=== PATIENT | male | born 1980 | race Caucasian/White ===

== ENCOUNTER 2016-12-26 18:09 | Inpatient (IN) | payer MEDICAID, OTHER, SELFPAY ==
[~2016-12-26] VITALS: Ht 177.8 cm; Wt 98.0 kg
[2016-12-26] VITALS (10 sets, daily range): BP systolic 88–96; BP diastolic 51–57
[2016-12-26] MEDS ORDERED: LORazepam 2 MG/ML VIAL (J2060) IV STA (18:22)
[2016-12-26] MEDS ORDERED: SUBO8MIS SL (18:29)
[2016-12-26] MEDS ORDERED: ADVI200T PO (18:29)
[2016-12-26] MEDS ORDERED: IMOD2CAP PO (18:29)
[2016-12-26] MEDS ORDERED: NS 1,000 ML IV ONE ×2 (18:30→20:30)
[2016-12-26] MEDS ORDERED: ONDANSETRON 4MG/2ML VIAL (J2405) IV ONE (18:30)
[2016-12-26] MEDS ORDERED: METAL LOCK LOOP XX ONE (18:53)
[2016-12-26] MEDS ORDERED: NALOXONE INJ 2 MG/2 ML SYRINGE (J2310) IV STA (19:05)
--- NOTE | 2016-12-26 19:10 | REP ---
PORTABLE CHEST: AP portable view of the chest is performed. There are scattered alveolar infiltrates diffusely bilaterally. The heart does not appear to be significantly enlarged. The visualized osseous structures appear intact. IMPRESSION: Scattered patchy infiltrates diffusely bilaterally. Signed by Luther Quispe MD 12/27/2016 12:34 P
[2016-12-26 19:48] LABS: ADD MANUAL DIFFER YES; DIFF SLIDE NUMBER 335; MEAN CORPUSCULAR HEMOGLOBIN 29.1 pg (27.0-33.0); MEAN CORPUSCULAR HGB CONC 33.5 g/dl (32.0-36.5); MEAN CORPUSCULAR VOLUME 86.8 fl (80.0-96.0); RED CELL DISTRIBUTION WIDTH 14.6 % (11.5-14.5); WHITE BLOOD COUNT 11.8 K/mm3 (4.0-10.0)
[2016-12-26 20:16] LABS: ALBUMIN 1.4 GM/DL (3.2-5.2); ALBUMIN/GLOBULIN RATIO 0.37 (1.00-1.93); ALKALINE PHOSPHATASE 145 U/L (45-117); ALT/SGPT 230 U/L (12-78); ANION GAP 24 MEQ/L (8-16); AST/SGOT 482 U/L (15-37); BILIRUBIN,DIRECT 6.4 MG/DL (0.0-0.2); BILIRUBIN,TOTAL 7.3 MG/DL (0.2-1.0); CALCIUM LEVEL 7.1 MG/DL (8.5-10.1); CARBON DIOXIDE LEVEL 16 MEQ/L (21-32); CHLORIDE LEVEL 92 MEQ/L (98-107); CREATININE FOR GFR 8.41 MG/DL (0.70-1.30); GLOMERULAR FILTRATION RATE 7.8 (>60); GLUCOSE, FASTING 196 MG/DL (70-105); POTASSIUM SERUM 4.8 MEQ/L (3.5-5.1); SODIUM LEVEL 132 MEQ/L (136-145); TOTAL PROTEIN 5.2 GM/DL (6.4-8.2)
[2016-12-26 20:17] LABS: BLOOD UREA NITROGEN 235 MG/DL (7-18)
[2016-12-26 20:27] LABS: PLATELET COUNT, AUTOMATED 22 k/mm3 (150-450)
[2016-12-26 20:30] LABS: ANISOCYTOSIS 1+; BANDS 3 % (< 11)
[2016-12-26 20:31] LABS: TOXIC GRANULATION 2+; TOXIC VACUOLATION 1+
[2016-12-26 20:32] LABS: CRENATED RBC 1+
--- NOTE | 2016-12-26 20:42 | ECGEPIP ---
Stationary ECG Study [facility] - ED Test Date: 2016-12-26 Pat Name: ELIAN MICHELE Department: Room: - Gender: M Sped Teacher: SantacruzB: 1980 Requested By: OLYA GOODMAN Order Number: [id number] Reading MD: Danna Tubbs Measurements Intervals [place] Rate: 102 P: 25 IL: 164 QRS: 23 QRSD: 126 T: 41 QT: 327 QTc: 427 Interpretive Statements SINUS TACHYCARDIA LATERAL MYOCARDIAL INFARCTION, CLINICAL CORRELATION NO PRIOR FOR COMPARISON Electronically Signed On 12-26-2016 20:41:56 EDT by Danna Tubbs
[2016-12-26] MEDS ORDERED: ONDANSETRON 4MG/2ML VIAL (J2405) IV PRN (20:45)
[2016-12-26 21:03] LABS: ABG BASE EXCESS -10.7 (-2.0-2.0); ABG HCO3 13.7 MEQ/L (22.0-26.0); ABG PARTIAL PRESSURE CO2 26.8 mmHg (35.0-45.0); ABG PARTIAL PRESSURE O2 98.1 mmHg (75.0-100.0); ABG TOTAL CO2 14.6 MEQ/L (22.0-29.0); ABG pH (ARTERIAL) 7.328 UNITS (7.350-7.450)
[2016-12-26 21:23] LABS: INR 1.66
[2016-12-26 21:24] LABS: FIBRINOGEN 415 MG/DL (221-452)
[2016-12-26] MEDS ORDERED: VISI0.054 OU (21:38)
[2016-12-26] MEDS ORDERED: AFRI0.056 (21:38)
[2016-12-26] MEDS ORDERED: ZICAGEL2 (21:38)
[2016-12-26] MEDS ORDERED: SODIUM BICARBONATE 150 MEQ in STERILE WATER LITER BAG 1,000 ML IV SCH (21:45)
[2016-12-26 21:55] LABS: REASON FOR REVIEW COMPREHENSIVE REVIEW
[2016-12-26] MEDS ORDERED: VANCOMYCIN INTERMITTENT/PULSE DOSING BY CLINICAL PHARMACIST PER DOSING PROTOCOL XX SCH (23:15)
--- NOTE | 2016-12-26 23:19 | PHACANCOPD ---
PHARMACY VANCOMYCIN DOSING Pt Demographics Demographics Patient Age:36 , Weight:76.500 , Gender: male Adjusted Body Weight Date: 12/26/16, Adjusted Body Weight: [74.4] Kg Events Past 24 Hours Events Past 24 Hours: NO: Dialysis, Diuretic Therapy, Change in CrCl, Fever, Elevation in WBC, Pending Diagnostics, Pending Procedures, Other Vancomycin Vancomycin Target Ranges: 10-20 mcg/ml Vancomycin Load Y/N: Yes Load Dose Date Time Vancomycin Load Dose: 1500MG Date: 12-27 Time: 0100 Vancomycin Dose Date: 12/26/16. Current Vancomycin Dose: Intermittent Dosing?: Yes Labs Labs Item Value Date Time White Blood Count 11.8 K/mm3 H 12/26/16 192 Creatinine 8.41 MG/DL H 12/26/161924 Blood Urea Nitrogen 235 MG/DL H 12/26/161924 Vital Signs Label Value Date Time Patient Temperature 97.8 degrees F 12/26/162137 Temperature Source Temporal 12/26/162137 Micro Microbiology 12/26/16 Blood Culture, Received Pending 12/26/16 Blood Culture, Received Pending Creatinine Clearance Date:12/26/16. Creatinine Clearance: [13]. Pending Labs Random 08-15 in am Assessment and Plan Maintaining Current Dose?: Yes Reason for dose change: No Dose Change Pharmacist Note Pharmacist Note Date: 12/26/16. Pharmacist note:dosing intermittent per levels. First random level 08-15 in am. Will continue to monitor and make adjustments as needed. TOM BRUNSON [facility]ARMAC[facility] Dec 26, 2016 23:19
[2016-12-26 23:52] LABS: CALCIUM LEVEL 7.3 MG/DL (8.5-10.1); CREATININE FOR GFR 8.22 MG/DL (0.70-1.30); POTASSIUM SERUM 5.1 MEQ/L (3.5-5.1)
[2016-12-27] VITALS (106 sets, daily range): BP systolic 82–129; BP diastolic 46–75; O2SAT 96
[2016-12-27 01:00] LABS: MICROSCOPIC INDICATED? MAN YES (NO)
--- NOTE | 2016-12-27 01:00 | REPUSA ---
CLINICAL HISTORY: Central line. COMMENTS: AP view demonstrates diffusely increased interstitial lung markings consistent with bronchitis. Bilateral perihilar and lower lobes pulmonary infiltrates. Right upper lobe pulmonary infiltrates. The cardiac silhouette is within normal limits of size. No significant other cardiopulmonary abnormal ities are seen. The mediastinum is unremarkable. Right internal jugular central catheter is in good position with its tip in the atriocaval junction. IMPRESSION Multifocal pneumonic infiltrates. Right internal jugular central catheter is in good position. Bronchitis. Thank you for your kind referral of this patient.
[2016-12-27 01:10] LABS: SQUAMOUS EPITHELIAL CELL URINE SMALL AMOUNT /hpf (SMALL AMT)
[2016-12-27 01:11] LABS: BACTERIA, URINE MOD AMOUNT; METHADONE URINE NEGATIVE (NEGATIVE)
[2016-12-27 01:12] LABS: HYALINE CAST, URINE NONE SEEN /lpf (0-1); MICROSCOPIC EXAM PERFORMED
[2016-12-27] MEDS: PIPERACILLIN/TAZOBACTAM SOD 2.25 GM in D5W MINI-BAG PLUS 50 ML IV SCH ×5 (01:16→23:58)
[2016-12-27] MEDS: PANTOPRAZOLE 40MG INJ (PROTONIX) (C9113) IV SCH ×2 (01:16→20:30)
[2016-12-27] MEDS: VANCOMYCIN HCL 750 MG, VIAL MATE ADAPTER 1 EACH in D5W 250 ML IV SCH ×2 (01:17→03:14)
--- NOTE | 2016-12-27 01:20 | REPUSA ---
CLINICAL HISTORY: Abdominal pain. TECHNIQUE: Multiple axial, sagittal and coronal CT images were obtained through the abdomen and pelvi s without administration of IV contrast material. Patient ingested oral contrast. COMMENTS: The liver is of uniform attenuation without mass or defect. There is no intra or extrahepatic biliary ductal dilatation. The spleen is normal. The gallbladder is within normal limits. The pancreas is of normal contour and attenuation characteristics. There is no evidence of adrenal mass. Bilateral perinephric fat stranding. The kidneys are normal in size, shape and configuration. No renal or ureteral calculi are identified. There is no hydroureter or hydronephrosis. There is no evidence for appendicitis. There is no bowel wall thickening. No evidence for small or la rge bowel obstruction. There is no evidence of abdominal ascites or lymphadenopathy. There is no evidence of intrinsic or extrinsic bladder mass. There is no pelvic ascites or lymphadeno louisa. Very catheter is in good position. Images of the lung bases show no evidence of pleural or parenchymal mass. There are no pleural effusi ons. The bony structures are free of lytic or blastic lesions. Bilateral gluteal muscular spasm and soft tissue thickening. Phlegmonous changes with 2.5 cm left glu teal intramuscular fluid collection. Diffuse anasarca. IMPRESSION: Perinephric fat stranding, probably secondary to abnormal renal function. Anasarca. Bilateral gluteal changes as above. Thank you for your kind referral of this patient.
--- NOTE | 2016-12-27 01:20 | REPUSA ---
CLINICAL HISTORY: Drug abuse. TECHNIQUE: Multiple axial brain CT scan sections were obtained from base to vertex without contrast a dministration. COMMENTS: The study shows normal configuration of sella turcica. There are no intra or extra-axial collections. There is no mass effect or midline shift. There is no evidence of hematoma formation. No hydrocephal us is present. No abnormal calcifications are noted. No significant abnormalities are seen either in the posterior fossa or supratentorial compartment. The sinuses and mastoid air cells are patent. IMPRESSION: No evidence of acute intracranial pathology. Thank you for your kind referral of this patient.
--- NOTE | 2016-12-27 01:20 | REPUSA ---
CLINICAL HISTORY: Drug abuse. Pulmonary infiltrates. TECHNIQUE: Multiple axial CT images were obtained through chest without IV contrast material. MPR cor onal and sagittal sequences were obtained. COMMENTS: Diffuse bilateral pulmonary consolidations more prominent in the lower lobes. Bilateral multiple thickwalled cavitating lesions of the lungs the largest measuring 4.8 cm in the le ft lower lobe. The heart and great vessels are within normal limits. The visualized portions of the liver are of uniform attenuation without mass or defect. There is no i ntra or extrahepatic biliary ductal dilatation. The spleen is unremarkable. The visualized pancreas i s of normal contour and attenuation characteristics. There is no evidence of adrenal mass. The visual ized portions of the kidneys present no abnormalities. The bony structures are free of lytic or blastic lesions. IMPRESSION: Diffuse bilateral groundglass densities of the lungs. Diffuse bilateral pulmonary nodules. Bilateral cavitating lesions of the lungs. Thank you for your kind referral of this patient.
[2016-12-27] MEDS ORDERED: NS 1,000 ML IV ONE ×2 (01:30→07:00)
[2016-12-27] MEDS ORDERED: SODIUM CHLORIDE 0.9% INJ 10 ML SYR IV PRN (01:45)
[2016-12-27 02:51] LABS: ABG BASE EXCESS -8.3 (-2.0-2.0); ABG HCO3 16.8 MEQ/L (22.0-26.0); ABG PARTIAL PRESSURE CO2 33.2 mmHg (35.0-45.0); ABG PARTIAL PRESSURE O2 72.8 mmHg (75.0-100.0); ABG STANDARD HCO3 17.6 MEQ/L (22.0-26.0); ABG TOTAL CO2 17.8 MEQ/L (22.0-29.0); ABG pH (ARTERIAL) 7.321 UNITS (7.350-7.450)
[2016-12-27] MEDS: LIDOCAINE 5% (LIDODERM) PATCH TD SCH ×2 (02:56→20:31)
[2016-12-27] MEDS ORDERED: IPRATROPIUM 0.5MG/ALBUTEROL 2.5MG INH SOL UD 3ML (DUONEB)(J7620) As Ordered ONE (03:04)
[2016-12-27] MEDS ORDERED: CALCIUM GLUCONATE 1,000 MG in D5W MINI-BAG PLUS 100 ML IV ONE ×2 (03:15→20:30)
[2016-12-27] MEDS ORDERED: IPRATROPIUM 0.5MG/ALBUTEROL 2.5MG INH SOL UD 3ML (DUONEB)(J7620) NEB ONE (03:15)
[2016-12-27] MEDS: SODIUM CHLORIDE 0.9% INJ 10 ML SYR IV SCH ×3 (06:42→20:33)
--- NOTE | 2016-12-27 06:51 | HPE ---
DATE OF ADMISSION: 12/26/2016 PRIMARY CARE PHYSICIAN: None. HOSPITALIST ATTENDING: Dr. Nuria Jimenez CHIEF COMPLAINT: Altered mental status. HISTORY OF PRESENT ILLNESS: This is a 36-year-old male with history of hepatitis C, heroin use, cocaine use, and polysubstance abuse who was brought in by ambulance due to altered mental status. According to the significant other providing most of the history, the patient has been undergoing heroin detoxification at home and has been having nausea, vomiting and diarrhea for the past three days, watery diarrhea, nonbloody, nonmucousy, with a fever of 103. The patient has been having a cough productive of white phlegm. He had been taking Advil 600 mg every other day, no Tylenol use. He has had decreased oral intake for the past six days. The patient was noted to be much more obtunded and lethargic by the significant other. He has been unable to walk around and eat for the past two days and has been laying in bed. He has had decreased oral intake and dark colored urine. The patient has been using Suboxone from off the street. No physician has been helping him and he has been taking Imodium for the diarrhea, specifically today. The patient also takes herbal medications, glycine, turmeric, chamomile and Mens Daily and was brought in due to obtundation, diaphoresis, severe abdominal pain with diarrhea. He was found to be in acute kidney injury with a creatinine of 8.41 and a BUN of 235, metabolic acidosis with bicarbonate of 16 and pH of 7.3. The patient was found to be in acute rhabdomyolysis, total CK of 5,438, with multiple infiltrates found on chest x-ray. CT of chest is pending. The hospitalist service was called for admission. No other review of systems could be obtained as the patient is obtunded and lethargic. In the emergency room (ER), the patient did receive a dose of Narcan with no significant improvement. PAST MEDICAL HISTORY: Hepatitis C. PAST SURGICAL HISTORY: Glands removed on his pectoralis muscles by a cosmetic surgeon in [place]. ALLERGIES: No known drug allergies. HOME MEDICATIONS: - Advil 600 mg as needed - Imodium as needed - Suboxone 8 mg daily - herbal medications with glycine, turmeric, chamomile, Mens Daily SOCIAL HISTORY: Recreational drug use with cocaine, heroin, alcohol use. 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 Last drink was over a week ago. FAMILY HISTORY: Mother alive and well, no medical problems. REVIEW OF SYSTEMS: Could not be obtained as the patient is lethargic and obtunded. History is obtained from the patient's significant other at the bedside and the patient's parents. PHYSICAL EXAMINATION: Temperature 97.8, pulse 97, respiratory rate 22, blood pressure 113/63, and 94% on 2 liters nasal cannula. Generally, the patient is diaphoretic, minimally responsive, lethargic and obtunded. The patient is able to state his name. Appears to be oriented to time and place, but is lethargic. Pupils are round, reactive to light and accommodation. Extraocular muscles could not be assessed as patient is obtunded. No jugular venous distention, thyromegaly or cervical lymphadenopathy. He is visibly diaphoretic. Dry mucous membranes. Lungs are diminished with crackles bilaterally. Heart: S1, S2, sinus rhythm. Abdomen is soft, nontender, nondistended. Positive bowel sounds. Extremities: No cyanosis, clubbing or pitting edema. The patient has multiple excoriations and track jack bilateral upper and lower extremities, reddened areas in the buttocks area, with no obvious ulcer. LABORATORY DATA: White count 11.8, hemoglobin 11.6, hematocrit 34, and platelet count 22,000, 3 bands, 80% neutrophils. Sodium 132, potassium 4.8, chloride 92, bicarbonate 16, BUN 235, creatinine 8.41, glucose 196, calcium 7.1, total bilirubin 7.3, direct bilirubin 6.4, AST 42, ALT 230, alkaline phosphatase 145, total CK 5438, BNP 57.4, total protein 5.2, albumin 1.4. MICROBIOLOGY: Two sets of blood cultures are pending. Chest x-ray shows diffuse bilateral infiltrates. ASSESSMENT AND PLAN: This is a 36-year-old male with history of polysubstance abuse with cocaine and heroin, alcohol abuse in the past, and chronic hepatitis C who does not see a primary care physician who presents to the emergency room with complaints of altered mental status after being at home detoxifying from heroin for the past two days using Suboxone from the street. The patient has been having diarrhea every day with some nausea and with fever of 103, cough productive of phlegm, and has been using Advil 600 mg every other day without any Tylenol. The patient was found to have acute rhabdomylosis, acute kidney injury with a creatinine of 8.3, metabolic acidosis, severe thrombocytopenia and platelet count of 22,000, as well as chest x-ray showing bilateral infiltrates. The patient will be admitted as an inpatient for two midnights in the intensive care unit and assigned to Dr. Nuria Jimenez for the following issues. 1. Sepsis. The patient was found to have patchy infiltrates on the chest x-ray with respiratory rate of 22 with a pulse of 96. He will be admitted to the intensive care unit and given broad spectrum antibiotics with vancomycin and Zosyn. Blood cultures have been obtained. The patient is currently oliguric, therefore, will place a Bashir catheter in and send for sample for urine culture and sensitivity. 2. Acute metabolic encephalopathy secondary to severe uremia, uremic encephalopathy, sepsis, and decompensated liver disease secondary to chronic hepatitis C. The patient will be monitored every 4 hours with neuro checks. No focal deficits. Narcan had no significant improvement. Will obtain imaging studies, CT of head without contrast to rule out other etiologies. Will add an ammonia level. Treat underlying causes including IV fluids with bicarbonate drip with renal failure. Infectious etiology with IV vancomycin and Zosyn. If ammonia level is elevated, will also add Kayexalate. 3. Rhabdomyolysis. IV fluid trial. Recheck. Cycle cardiac markers every 6 hours as well as metabolic panel. 4. Decompensated Liver disease due to Chronic hepatitis C with abnormal liver function tests, transaminitis, coagulopathy, hypoalbuminemia, and thrombocytopenia.The patient is severely jaundiced. Will monitor patient's liver function tests. with probable hepatorenal syndrome. Avoid acetaminophen. acetaminophen level, which is less than 2. Urine drug screen is negative. Will check hepatitis serology, complement levels CH50 and C4 to rule out mixed cryoglobulinemia, FRANCO. Once patient is medically improved and stabilized, will check ultrasound of the liver. Await results of CT of the abdomen.GI consult Dr. Beach has been asked to help manage patient's acute issues 5. Thrombocytopenia. Most likely secondary to chronic liver disease and hepatitis C. No active signs of bleeding. Continue to monitor. Rule out disseminated intravascular coagulation (DIC). Check peripheral blood smear. Check HIV. 8. Polysubstance abuse with Heroin/Heroin withdrawal. Supportive care. As needed benzodiazepines at minimal doses to prevent worsening encephalopathy. Avoid oversedation as it could compromised respiratory status. DVT prophylaxis: sequential SYDNIE stockings due to thrombocytopenia. The patient's prognosis is guarded. The family is present at the bedside. He is a full code. MTDD
[2016-12-27 07:14] LABS: ALBUMIN 1.3 GM/DL (3.2-5.2); ALBUMIN/GLOBULIN RATIO 0.38 (1.00-1.93); BILIRUBIN,TOTAL 5.6 MG/DL (0.2-1.0); CALCIUM LEVEL 6.7 MG/DL (8.5-10.1); CREATININE FOR GFR 7.66 MG/DL (0.70-1.30); GLOMERULAR FILTRATION RATE 8.7 (>60); TOTAL PROTEIN 4.7 GM/DL (6.4-8.2); VANCOMYCIN RANDOM 25.8 UG/ML
[2016-12-27 07:18] LABS: BASO % 0.2 % (0.0-1.0); LARGE UNSTAINED CELL # 0.3 K/mm3 (0.0-0.4); LARGE UNSTAINED CELL % 6.8 % (0.0-4.0); LYMPH # 0.2 K/mm3 (1.5-4.5); LYMPH % 4.2 % (24.0-44.0); MEAN CORPUSCULAR HEMOGLOBIN 29.5 pg (27.0-33.0); MEAN CORPUSCULAR HGB CONC 34.5 g/dl (32.0-36.5); MEAN CORPUSCULAR VOLUME 85.4 fl (80.0-96.0); MONO # 0.4 K/mm3 (0.0-0.8); MONO % 10.3 % (0.0-5.0); NEUTROPHILS % 78.4 % (36.0-66.0); RED CELL DISTRIBUTION WIDTH 14.2 % (11.5-14.5); WHITE BLOOD COUNT 3.8 K/mm3 (4.0-10.0)
[2016-12-27 07:19] LABS: PLATELET COUNT, AUTOMATED 22 k/mm3 (150-450)
--- NOTE | 2016-12-27 07:36 | PHACANCOPD ---
PHARMACY VANCOMYCIN DOSING Pt Demographics Demographics Patient Age:36 , Weight:76.500 , Gender: male Adjusted Body Weight Date: 12/26/16, Adjusted Body Weight: [74.4] Kg Vancomycin Vancomycin indication: SEPSIS Vancomycin Target Ranges: 10-20 mcg/ml Vancomycin Load Y/N: Yes Load Dose Date Time Vancomycin Load Dose: 1500MG Date: 12-27 Time: 0100 Vancomycin Dose Date: 12/26/16. Current Vancomycin Dose: Intermittent Dosing?: Yes Labs Labs Item Value Date Time Random Vancomycin Level 25.8 UG/ML 12/27/16 0637 Creatinine 7.66 MG/DL H 12/27/16 0637 Micro Microbiology 12/26/16 Blood Culture, Received Pending 12/26/16 Blood Culture, Received Pending 12/27/16 Urine Culture, Received Pending Creatinine Clearance Date:12/26/16. Creatinine Clearance: [13]. Pending Labs Random 08-16 in am Assessment and Plan Maintaining Current Dose?: Yes Reason for dose change: No Dose Change Pharmacist Note Pharmacist Note Date: 12/27/16. Pharmacist note: Vanco random returned @ 25 four hours after loading dose. Random is scheduled for 12/28. continue with intermittent dosing and adjust dose as needed Date: 12/26/16. Pharmacist note:dosing intermittent per levels. First random level 08-15 in am. Will continue to monitor and make adjustments as needed. JAQUELIN FIGUEREDO PHARMACY Dec 27, 2016 07:36
--- NOTE | 2016-12-27 08:04 | REP ---
Portable chest x-ray: Single view. History: Worsening shortness of breath. Comparison chest x-ray is from December 27, 2016 at 12:29 a.m. A right internal jugular central venous line terminates in the expected location of the superior vena cava. Oxygen delivery tubing and EKG monitoring electrodes are seen. Patchy infiltrates are again noted bilaterally in a pattern which is essentially unchanged from the radiograph obtained 7 hours earlier. There is no evidence of pleural effusion. Cardiomediastinal silhouette is unchanged and unremarkable. No bony abnormality is seen. Impression: Patchy bilateral pulmonary parenchymal opacities, unchanged from the earlier film on this date. Signed by John Navarro MD 12/27/2016 09:12 A
[2016-12-27 08:12] LABS: ABG BASE EXCESS -9.7 (-2.0-2.0); ABG HCO3 14.5 MEQ/L (22.0-26.0); ABG PARTIAL PRESSURE CO2 26.9 mmHg (35.0-45.0); ABG PARTIAL PRESSURE O2 81.3 mmHg (75.0-100.0); ABG STANDARD HCO3 16.7 MEQ/L (22.0-26.0); ABG TOTAL CO2 15.3 MEQ/L (22.0-29.0); ABG pH (ARTERIAL) 7.349 UNITS (7.350-7.450)
[2016-12-27] MEDS ORDERED: LIDOCAINE 5% (LIDODERM) PATCH TD SCH (09:00)
[2016-12-27] MEDS ORDERED: VANCOMYCIN HCL 1,000 MG, VIAL MATE ADAPTER 1 EACH in D5W 250 ML IV ONE ×2 (09:00→18:00)
[2016-12-27] MEDS ORDERED: NS 1,000 ML IV SCH ×2 (09:00→09:30)
[2016-12-27] MEDS: **NOTE PATIENT COMMENT** MISC XX SCH (09:00)
[2016-12-27] MEDS: SODIUM BICARBONATE 150 MEQ in D5W 1,000 ML IV SCH ×2 (09:32→17:58)
--- NOTE | 2016-12-27 09:44 | CCN ---
DATE OF VISIT: 12/27/2016 Start time: 0815 hours Stop time: 0909 hours I was asked to evaluate Danny Jackson here in the intensive care unit by Dr. Nuria Jimenez. The patient has been examined, electronic medical record has been reviewed. I have spoken at length with the patient as well as his mother and significant other at the bedside. In essence, this is a 36-year-old gentleman with known hepatitis C and heroin abuse as well as other controlled substances. Toxicology screen on admission positive for not only opiates but benzodiazepines, cannabinoids and cocaine. He denies tobacco use. In essence, he has been trying to detox from heroine at home using Suboxone he has obtained from nonmedical sources. For the last several days he has had nausea, vomiting, fever to 103 with shortness of breath. Due to increasing confusion, he was brought to the emergency room. On arrival, he was afebrile with a heart rate of 106, blood pressure is in the 100s. He has remained afebrile since admission. He has been taking Advil at home as well. He has been found to have significant renal dysfunction with a creatinine in excess of 8. Bilirubin on arrival 7.3. Down to 5.6 this morning. He has been maintained on a bicarb drip. Currently, he has a heart rate in the 130s, respiratory rate in the 40s to 50s without obvious accessory use. Blood pressure 100 systolic. Pulse oximetry 92% on 6 liters nasal cannula. He is able to answer questions. His significant other states that he had some hemoptysis at home. Most recent laboratories done at 0637 hours this morning show a sodium of 132, K of 5.0, chloride 91, CO2 18, BUN 234, creatinine 7.66 down from an excess of 8 earlier this morning, bilirubin 5.6 down from 7, CPK 3795 down from 5436. Albumin 1.3. White blood cell count 3.8, hemoglobin 11.5, platelet count 22,000, 70% segs, no bands on the most recent differential. Most recent arterial blood gas done on 6 liters nasal cannula shows a pH of 7.349, pCO2 of 26.9, and a pO2 of 81.3. INR 1.66. D-Dimer is greater than 4000. Toxicology screen as outline above. On exam, he is a gentleman who appears his stated age, quite ill appearing. Vital signs as outlined above. He is able to answer questions. Pupils do react. Sclera clear. Membranes are dry. Trachea is in the midline. Chest shows bilateral scattered rhonchi, right greater than left. There are dependent crackles. Expansion is diminished. There are some inspiratory crackles noted in the mid zones anteriorly as well. No rubs. Cardiac exam is distant, tachycardic, but regular. Peripheral pulses are diminished. No obvious edema at this point. Abdomen mildly distended. Bowel sounds are hypoactive. Generally nontender, no rebound. Extremities no cyanosis or clubbing. Neurologically, although mildly somnolent is easily arousable. He answers questions appropriately. His psychiatric exam was reasonably normal mood and affect. Lactic acid done on admission 2.1, 2.6 at 0637 hours this morning. The most pressing problems requiring my immediate presence at the bedside: 1. Hypoxemia. 2. Metabolic acidosis. 3. Renal failure. 4. Hepatic insufficiency. 5. Sepsis. 6. Polysubstance abuse. 7. Hepatitis C by history. At this point, I believe he has a septic emboli pneumonitis given the appearance of his cavitary lesions and his known IV drug abuse. He has received Zosyn. I will give him one dose of vancomycin pending final cultures. Will get an echocardiogram. I have spoken at length with the primary service as well as with GI. We will continue with IV hydration. He is getting bicarb supplementation. At this point, he able to compensate from a respiratory standpoint. We will monitor that closely. As long he is able to compensate, then possibly we can avoid endotracheal intubation. I await input from the other subspecialty services. We will proceed as outlined above. Overall, his prognosis is guarded. He remains critically ill. I left the bedside at 0909 hours. 54 minutes of critical care time was delivered at the bedside, not including procedures.
[2016-12-27 10:02] LABS: INR 1.47
[2016-12-27] MEDS ORDERED: DIGOXIN INJ 0.5 MG/2 ML AMP (J1160) IV ONE ×2 (10:15→20:15)
--- NOTE | 2016-12-27 10:45 | PHACANCOPD ---
PHARMACY VANCOMYCIN DOSING Pt Demographics Demographics Patient Age:36 , Weight:76.500 , Gender: male Adjusted Body Weight Date: 12/26/16, Adjusted Body Weight: [74.4] Kg Vancomycin Vancomycin indication: SEPSIS Vancomycin Target Ranges: 15-20 mcg/ml Vancomycin Load Y/N: Yes Load Dose Date Time Vancomycin Load Dose: 1500MG Date: 12-27 Time: 0100 Vancomycin Dose Date: 12/26/16. Current Vancomycin Dose: Intermittent Dosing?: Yes Labs Micro Microbiology 12/26/16 Blood Culture - Preliminary, Resulted 12/26/16 Blood Culture - Preliminary, Resulted 12/27/16 Urine Culture, Received Pending Creatinine Clearance Date:12/26/16. Creatinine Clearance: [13]. Pending Labs Random - in am Assessment and Plan Maintaining Current Dose?: No Reason for dose change: No Dose Change Pharmacist Note Pharmacist Note Date: 12/27/16. Pharmacist note: After talking with Dr. Witt it was decided that pharmacy will pursue a trough of 15-20. Continue with plan to follow up with a random in the AM (12/28) Date: 12/27/16. Pharmacist note: Vanco random returned @ 25 four hours after loading dose. Random is scheduled for 12/28. continue with intermittent dosing and adjust dose as needed Date: 12/26/16. Pharmacist note:dosing intermittent per levels. First random level - in am. Will continue to monitor and make adjustments as needed. JAQUELIN FIGUEREDO [facility]ARMAC[facility] Dec 27, 2016 10:44
[2016-12-27] MEDS ORDERED: AMIODARONE HCL 150 MG in APPROPRIATE DILUENT 1 EA IV STA (11:36)
--- NOTE | 2016-12-27 11:41 | PHACANCOPD ---
PHARMACY VANCOMYCIN DOSING Pt Demographics Demographics Patient Age:36 , Weight:76.500 , Gender: male Adjusted Body Weight Date: 12/26/16, Adjusted Body Weight: [74.4] Kg Vancomycin Vancomycin indication: SEPSIS Vancomycin Target Ranges: 15-20 mcg/ml Vancomycin Load Y/N: Yes Load Dose Date Time Vancomycin Load Dose: 1500MG Date: 12-27 Time: 0100 Vancomycin Dose Date: 12/27/16. Current Vancomycin Dose: [1 GRAM @ 1800] Date: 12/26/16. Current Vancomycin Dose: Intermittent Dosing?: Yes Labs Labs Item Value Date Time Random Vancomycin Level 19.1 UG/ML 12/27/16 1024 Random Vancomycin Level 25.8 UG/ML 12/27/16 0637 White Blood Count 11.8 K/mm3 H 12/26/16 1925 White Blood Count 3.8 K/mm3 L 12/27/16 0637 Creatinine 7.66 MG/DL H 12/27/16 0637 Micro Microbiology 12/26/16 Blood Culture - Preliminary, Resulted 12/26/16 Blood Culture - Preliminary, Resulted 12/27/16 Urine Culture, Received Pending Creatinine Clearance Date:12/26/16. Creatinine Clearance: [13]. Pending Labs Random 08-16 in am Assessment and Plan Maintaining Current Dose?: Yes Reason for dose change: No Dose Change Pharmacist Note Pharmacist Note Date: 12/27/16. Pharmacist note: After talking with Dr. Witt it was decided that pharmacy will pursue a trough of 15-20. Continue with plan to follow up with a random in the AM (12/28). A second random returned @ 19.1 @ 10:24 (4 hours after initial random). Based on these 2 levels the patient appears to be clearing vanco fairly well (T1/2 approx. 12 hours). Another 750 mg dose is scheduled for 1800. Continue to monitor CrCl and adjust dose as needed. Date: 12/27/16. Pharmacist note: Vanco random returned @ 25 four hours after loading dose. Random is scheduled for 12/28. continue with intermittent dosing and adjust dose as needed Date: 12/26/16. Pharmacist note:dosing intermittent per levels. First random level 08-15 in am. Will continue to monitor and make adjustments as needed. JAQUELIN FIGUEREDO PHARMACY Dec 27, 2016 11:41
--- NOTE | 2016-12-27 11:56 | CR ---
DATE OF CONSULTATION: 12/27/2016 STATE OF PATIENT: Inpatient ICU. REQUESTING PHYSICIAN: Hospitalist service. REASON FOR CONSULTATION: Liver insufficiency, abnormal liver function tests. HISTORY OF PRESENT ILLNESS: Mr. Phillip is a 36-year-old gentleman with a reported history of hepatitis C. He also has polysubstance abuse including heroin and cocaine, who recently tried to detox at home with Suboxone, who presents to the emergency room brought in by friends in a obtunded nearly comatose state. While the patient is awake and appears alert, his speech is markedly slurred and I am unclear if he is understanding any questions I am posing to him. Most of the history was obtained from the chart and from family members at bedside today. PAST MEDICAL HISTORY: Hepatitis C. PAST SURGICAL HISTORY: No intra-abdominal surgeries. ALLERGIES: No known drug allergies. MEDICATIONS AT HOME: Advil, Imodium, Suboxone and multivitamin. SOCIAL HISTORY: Polysubstance use including cocaine, heroin and alcohol. His last alcoholic beverage reportedly was over a week ago. FAMILY HISTORY: Noncontributory. REVIEW OF SYSTEMS: Unobtainable. PHYSICAL EXAMINATION: GENERAL: He is awake and he is alert, but speech is slurred, unintelligible. Appears to followup or attempts to follow commands. HEAD, EYES, EARS, NOSE AND THROAT: Grossly without abnormality. There is no oral thrush. There is mucosal dryness. He is jaundiced. NECK: Negative. CHEST: Coarse breath sounds bilaterally. HEART: Tachycardic, regular. No murmurs appreciated. ABDOMEN: Soft, tender throughout with muscle guarding. No masses felt. No ascites or organomegaly. EXTREMITIES: Trace pedal edema 1-2+. MUSCULOSKELETAL: Patient is tender along all muscle groups to palpation including upper and lower extremities and abdominal wall. LABORATORY FINDINGS: PT/INR 1.66/1.47, bilirubin is 5.6, direct bilirubin 5.0, GGT is normal at 41, AST is 308, ALT is 184, total creatinine kinase 3795, albumin 1.3, hemoglobin 11.5, hematocrit is 33.4, platelet count is 22. IMAGING STUDIES: CT abdomen and pelvis dated 12/26/2016: Impression perinephric stranding probably secondary to abnormal renal function, anasarca, bilateral gluteal changes as above. The liver is uniform in attenuation without mass or defect. There is no intra or extra hepatic biliary ductal dilatation. The spleen is normal. The gallbladder is within normal limits. IMPRESSION: 1. Abnormal liver enzymes. 2. Coagulopathy.- mild 3. Thrombocytopenia. 4. Oliguric renal failure. 5. Pneumonia. 6. Malnutrition 7. Dehydration 8. Rhabdomyolysis 9. History of hepatitis C. 10. History of alcohol and polysubstance abuse. DISCUSSION: The overall presentation is that of septic shock from his pneumonia and while he does have significantly abnormal liver function lab work such as coagulopathy and thrombocytopenia and a elevated direct bilirubin, I still believe the overall presentation is that of sepsis rather than liver failure. At this point, I would recommend aggressive IV hydration to improve renal function. continue bicarb to manage his metabolic acidosis and appropriate antibiotic coverage for his pneumonia and sepsis. His malnutrition based on his albumin is likely also severe and a po diet or feeds via NG tube need to be started as soon as possible to improve his oncotic pressure. MTDD
[2016-12-27] MEDS: LEVALBUTEROL 1.25 MG/0.5 ML CONCENTRATE NEB INH SCH ×2 (13:33→20:00)
[2016-12-27 13:42] LABS: CREATININE FOR GFR 7.88 MG/DL (0.70-1.30); GLOMERULAR FILTRATION RATE 8.4 (>60); POTASSIUM SERUM 4.9 MEQ/L (3.5-5.1)
--- NOTE | 2016-12-27 14:07 | IPN ---
DATE: 12/27/2016 SUBJECTIVE: The patient is seen and examined in the room today. During the encounter, the patient had tachypnea with tachycardia. The patient's blood pressures remain very soft. He has increased oxygen demands. The patient is alert and awake. However, he has difficulty answering questions due to current severe symptoms. I did have a chance to talk to the patient's girlfriend who is near the bedside. The patient has been using heroin until 1-2 weeks ago and the patient started having generalized discomfort and pain. The patient has been sitting, not able to move for that duration. The patient took multiple pills of ibuprofen at least three times a day for the past 1-2 weeks. The patient also has a history of significant alcohol abuse. The patient used to drink one bottle of liquor in two days. However, for the past two days, due to the patient's acute worsening illness, the patient started to cut down the alcohol. Last drink was approximately one week ago. When I discussed the code status, the patient's healthcare proxy and the patient both wanted full code. OBJECTIVE: VITAL SIGNS: Temperature 98.3, pulse is 133, respiratory rate 15, blood pressure is 94/50, pulse oximetry 94% with eight liters high-flow cannula. Several hours later, the patient required being switched to nasal cannula at 15 liters. GENERAL: Moderate to severe distress. The patient is alert and awake, not able to answer questions due to active disease process. HEENT: Normocephalic, atraumatic. Extraocular motor grossly intact. CARDIOVASCULAR: Tachycardic. Positive S1, S2. Heart rate around the 140s to 150s. RESPIRATORY: Coarse lung sounds throughout. ABDOMEN: Soft, nontender. MUSCULOSKELETAL: There are unstageable ulcers near the sacral region. EXTREMITIES: No lower extremity edema. LABORATORY DATA: WBC 3.8, hemoglobin 11.5, hematocrit 33.4, platelet count is 22. Sodium is 132, potassium 5, chloride is 91, carbon dioxide 18, BUN is 234, creatinine is 7.66, GFR is 8.7, fasting glucose 125, calcium is 6.7, total bilirubin 5.6, direct bilirubin is 5, AST 308, ALT is 184, alkaline phosphatase is 115. Total CK is 3795. Troponin I is 0.51. Albumin 1.3. Blood culture preliminary results show Gram-positive cocci in clusters times two sets. ASSESSMENT AND PLAN: 1. Severe sepsis. The patient continues to have tachycardia and tachypnea. The patient's blood pressure remains very soft. The patient is currently on aggressive IV hydration. The patient had multiple doses of IV vancomycin. The vancomycin level was also tested. Due to current end-stage renal failure, the patient's vancomycin is given at a renal dose and we appreciate nephrology's assistance. The patient is also on Zosyn for severe sepsis. Currently, preliminary blood culture came back positive for Gram-positive cocci in clusters in less than 24 hours. Urine culture is pending. 2. The patient does have significant heroin use. Last use was approximately two weeks ago before the patient's worsening physical deconditioning. We will follow with a stat cardiac echogram. CT of the chest performed shows diffuse bilateral ground-glass density of the lung and bilateral cavitary lesions of the lung. Development Expert, Dr. Witt, has been consulted. 3. Bilateral pneumonia. CT showed the patient has bilateral ground-glass density of the lung and bilateral pulmonary nodules and bilateral cavitary lesions. The patient is on broad-spectrum vancomycin and Zosyn. The patient currently is being treated for sepsis or even septic shock. 4. End-stage renal disease. This morning, the patient had a creatinine of 7.66 with glomerular filtration rate (GFR) of 8.7. Dr. Grweal has been consulted for assistance. There is a possibility that the patient's severe sepsis is causing multiorgan damage/failure. At this moment, we will continue with antibiotics and aggressive IV fluid and continue with medical management. 5. Hepatic injury. Gastroenterology (GI) specialist, Dr. Beach, has been consulted who feels currently we will pursue with medical management including treating the sepsis and treating the patient's rhabdomyolysis. We will continue to follow with liver functions. 6. New onset of atrial fibrillation with elevated troponins. The patient has been having persistent tachycardia. At approximately 10:00 o'clock in the morning, the patient was found to have atrial fibrillation with a heart rate around 160s. Due to the hypotension, I discussed the case with the legal service specialist, Dr. Ricks. He was started on a loading dose of digoxin and legal service specialist, Dr. Ricks, has been consulted and we appreciate his assistance with this patient. The patient is relatively young and according to history, the patient does not have any heart disease in the past. However, during diagnostic workup, the patient tested positive for cocaine and the patient also has a significant alcohol history that may compromise the patient's baseline heart functions. 7. Hepatitis C. According to the girlfriend, the patient has not sought treatment for the hepatitis C. She is aware of the risks, and as for herself, she has been getting routine laboratory tests for the hepatitis C. Hepatitis panel is ordered and I will followup with hepatitis C viral load. 8. Metabolic acidosis. The patient will continue on the bicarbonate drip. 9. Thrombocytopenia. We do not have any record of the complete blood count (CBC) before this current hospitalization stay. Peripheral smear was ordered. It shows that there are findings consistent with acute infectious process. No blast identified. Follow with anemia workup. 10. Multidrug abuse. Per history, the patient has chronic heroin use. Urine toxicology does test positive. However, urine toxicology is also positive for benzodiazepine, cocaine, and marijuana. 11. Metabolic encephalopathy, secondary to sepsis and uremia. 12. Rhabdomyolysis, on aggressive IV fluid. 13. Deep vein thrombosis (DVT) prophylaxis. Due to severe thrombocytopenia, the patient is on thromboembolic-deterrent stockings (TEDS) and sequential compression device (SCD).
--- NOTE | 2016-12-27 14:14 | IPN ---
DATE: 12/27/2016 Mr. Jackson is seen this morning on his bedside. He remains very weak, tachypneic, and hypotensive. Apparently, his IV fluid was stopped this morning by hospitalist service. Dr. Witt has already reordered bicarbonate drip and IV normal saline. In the meantime, the patient remains quite tachycardiac and tachypneic. He did not have any high-grade fever through the night. He was given vancomycin 1 gram last night and Zosyn 2.25 grams every six hours. His blood cultures have already been reported positive for Gram-positive cocci. PHYSICAL EXAMINATION: On physical examination, his temperature is 97.4 degrees Fahrenheit, heart rate 143 per minute and respiratory rate 50 per minute. Blood pressure is 106/57 mmHg and oxygen saturation is 92% on 10 liters of oxygen. His head is atraumatic. Oral mucosa is very dry and he is a mouth breather. Neck is supple and there is no jugular venous distention (JVD) or thyroid enlargement. His heart sounds are quite tachycardiac. Lungs have scattered rhonchi bilaterally. Abdomen is soft and bowel sounds are present. Extremities have no cyanosis or clubbing. Skin is icteric. Pupils are equal and reactive to light and sclera is also icteric. LABORATORY DATA: Today's laboratories show WBC count 3.8, hemoglobin 11.5 and hematocrit 33.4. Platelets are 22,000. His lactic acid level is up to 2.6. Sodium is 132 and potassium 5.0, CO2 18, BUN 234 and creatinine 7.66. Total bilirubin is 5.6, AST 308, ALT 184 and alkaline phosphatase 115. CPK is down to 3795. PROBLEMS: 1. Acute renal failure, most likely related to sepsis and dehydration. I agree with Dr. Witt for aggressive IV fluid hydration. The patient is septic and still quite dehydrated. Bicarbonate drip at 150 mL per hour and normal saline 100 mL per hour is being resumed. At present, we will hold off on any plans for dialysis due to hypotension and dehydration. He does have some urine output and kidney function is likely to improve once his sepsis and dehydration is controlled. 2. Septic shock with Gram-positive bacteremia. Blood cultures are already reported positive this morning for Gram-positive cocci. The patient was given 1 gram of vancomycin. I recommend to consider infectious disease consultation and continue with Gram-positive coverage with antibiotics. Vancomycin should be dosed according to his renal function. This morning, his vancomycin level is 25.8. 3. Rhabdomyolysis, most likely related to mild muscle damage because of laying in the same position for a long time. His creatine phosphokinase (CPK) has already improved. Continue with IV fluid hydration. I do not feel that rhabdomyolysis is the cause of his renal failure. 4. Metabolic acidosis. The patient will continue with sodium bicarbonate drip. His repeat blood gas this morning showed a pH of 7.34 and bicarbonate is still low at 16.
[2016-12-27] MEDS: THIAMINE INJection 100 MG, FOLIC ACID 1 MG, MULTIVITAMIN -ADULT INJECTION 10 ML in NS 1... IV SCH (14:57)
--- NOTE | 2016-12-27 15:24 | CR ---
DATE OF CONSULTATION: 12/27/2016 REASON FOR CONSULTATION: Acute renal failure and acidosis. HISTORY OF PRESENT ILLNESS: Mr. Jackson is a 36-year-old male was brought to the emergency room in the afternoon on December 26 due to generalized weakness and not feeling well. Apparently he has history of heroin use for the last several months. He tried to detoxify himself at home with Suboxone that he got off the street. His significant other reports that for last 4-5 days he has not been feeling well. He did not eat or drink much and was mostly sleeping. He also had fever up to 103 degrees Fahrenheit. He took some Advil a couple of times. He was brought to the emergency room with hypotension, and BUN was 235 and creatinine 8.4. His chest x-ray showed some infiltrates. Nephrology consultation was requested, and the patient was seen in the evening of December 26 on his arrival to intensive care unit. PAST MEDICAL AND SURGICAL HISTORY: Nothing remarkable other than history of hepatitis C and history of heroin abuse. ALLERGIES: No known drug allergies. MEDICATIONS: He used Advil as needed, Suboxone 8 mg that he took a few times at is own. PERSONAL AND SOCIAL HISTORY: He has history of heroin and cocaine use for the last at least 8 months. FAMILY HISTORY: Noncontributory. REVIEW OF SYSTEMS: The patient is quite weak and short of breath. He did have fever up to 103 degrees Fahrenheit at home. He has history of poor oral intake for last 5-6 days. Head and neck are unremarkable. There is no history of nosebleed or sore throat. Cardiovascular system is significant for shortness of breath. There is no leg edema or chest pain. Respiratory system is negative for hemoptysis or pleuritic-type chest pain. He does have some cough but no sputum production. Gastrointestinal (GI) system is significant for poor oral intake for the last several days. There is no reported vomiting, rectal bleeding, or black-colored stools. Genitourinary () system is significant for decreased urine output. Musculoskeletal system is significant for generalized weakness and back pain. He also has some pain in his shoulders and took some Advil. Endocrine system is negative for diabetes or thyroid problems. Hematological system is negative for easy bruising or excessive bleeding. Psychosocial system is significant for chronic heroin and cocaine use. Neurological system is negative for seizures or stroke. PHYSICAL EXAMINATION: On arrival to intensive care unit, his temperature is 96.3 degrees Fahrenheit, heart rate 106 per minute, respiratory rate 30 per minute, blood pressure 107/66 mm of mercury, oxygen saturation is 96%. Head is atraumatic. His oral mucosa is very dry, and lips are crusted. Pupils are equal and reactive to light. Sclerae are icteric. Neck is supple, and there is no jugular venous distention (JVD) or thyroid enlargement. Heart sounds are tachycardiac. Lungs have bilateral rhonchi. Abdomen is soft and nontender. Bowel sounds were present. Extremities have no cyanosis or clubbing. Skin is jaundiced and very dry. Neurologically, he is awake, very shaky and tremulous. He is able to answer simple questions. WBC count 11.8, hemoglobin 11.6, hematocrit 34.6, platelets are 22,000. Blood gas showed a pH of 7.32, pCO2 of 26.8, pO2 of 98, and bicarbonate 16. Sodium 132, potassium 4.8, chloride 92, CO2 of 16, BUN 235, creatinine 8.41, glucose 196, calcium 7.1. Total bilirubin 7.3, AST 482, ALT 230, CPK 5438, total protein 5.2, and albumin 1.4. A BNP level is 57.4. Lactic acid level was 2.1. Chest x-ray showed scattered patchy infiltrates bilaterally. PROBLEMS: 1. Acute renal failure, most likely related to dehydration. The patient has history of poor oral intake for last several days. In addition, he had high-grade fever and sepsis. At present he needs aggressive intravenous (IV) fluid hydration. He does have metabolic acidosis related to acute renal failure, and I would agree to continue with sodium bicarbonate drip overnight. In the morning we will re-evaluate the need for IV fluids. He is certainly quite dehydrated and will need to continue with aggressive IV fluid hydration. Infiltrates on his chest x-ray are most likely infective and not due to volume overload. 2. Septic shock. The patient has low blood pressure, tachycardia, and history of high-grade fever at home. Chest x-ray showed infiltrates, which are most likely septic emboli. He does have history of IV drug abuse and likely to have staphylococcus sepsis. I have discussed with Dr. Wilson and recommended broad-spectrum antibiotics. He will be given vancomycin 1 gram, and Zosyn and is being started at 2.25 grams every 6 hours. We will also continue with IV fluid hydration. 3. Abnormal liver function tests (LFTs,), most likely related to IV drug use, sepsis, shock liver, and possible drug abuse. We will get abdominal CT scan. Will also look at his kidneys and bladder. No IV contrast will be used. 4. Metabolic acidosis. Acidosis is related to acute renal failure and hypotension. He does have some lactic acidosis. Aggressive IV fluid hydration is recommended at this point. I thank you for involving me in the care of Mr. Jackson. I will follow him along with you.
[2016-12-27] MEDS ORDERED: VANCOMYCIN HCL 750 MG, VIAL MATE ADAPTER 1 EACH in D5W 250 ML IV ONE (18:00)
[2016-12-27 18:39] LABS: CALCIUM LEVEL 6.6 MG/DL (8.5-10.1); CREATININE FOR GFR 7.6 MG/DL (0.70-1.30); GLOMERULAR FILTRATION RATE 8.8 (>60); POTASSIUM SERUM 4.9 MEQ/L (3.5-5.1)
--- NOTE | 2016-12-27 19:22 | ECHO ---
DATE OF PROCEDURE: 12/27/2016 REFERRING PHYSICIAN: Dr. Nuria Jimenez, Dr. Sharon Witt INDICATION: Sepsis. PATIENT LOCATION: ICU HEIGHT: 178 cm WEIGHT: 77 kg. DIMENSIONS: IVS: 1.2 LV: 5.4 LVPW: 1.2 LA: 3.5 Aorta: 3.2 FINDINGS: The study is of good technical quality. Left ventricle is of normal size and is severely globally hypokinetic. I estimate ejection fraction (EF) around 30-35%. Right ventricle does not appear enlarged, but is also hypokinetic. Both atria appear grossly normal. Aortic, mitral and pulmonic valves are normal. There is a large vegetation apparent on tricuspid valve attached to the septal cusp of tricuspid valve. It measures over 2 cm in its largest diameter. Atrial septum appears intact. There is a small noncompressive pericardial effusion. Inferior vena cava is normal size. Aortic root, aortic arch and visualized segment of abdominal aorta appear normal. Doppler interrogation reveals no aortic valve disease. There is mild mitral insufficiency and moderate tricuspid insufficiency. Calculated pulmonary artery pressure is probably in low 30s corresponding to mild pulmonary hypertension. Pulmonic valve exhibits trace insufficiency. Evaluation of diastolic function is inconclusive, the patient was in atrial fibrillation with rapid ventricular response (heart rate between 110 and 140) during the study. CONCLUSIONS: 1. Study is of good technical quality. 2. Normal left ventricle (LV) size with severe global hypokinesis and estimated LV of 30-35%. 3. No significant aortic, mitral and pulmonic valve disease. 4. Large vegetation on tricuspid valve with resulting approximately moderate insufficiency. 5. Likely normal central venous pressure and mild pulmonary hypertension. COMMENT: Subacute bacterial endocarditis (SBE) prophylaxis is recommended. Results were communicated to Dr. Jimenez.
[2016-12-27] MEDS ORDERED: **NOTE PATIENT COMMENT** MISC XX SCH (21:00)
[2016-12-27 21:27] LABS: ABG BASE EXCESS -5.3 (-2.0-2.0); ABG HCO3 20.8 MEQ/L (22.0-26.0); ABG PARTIAL PRESSURE CO2 42.7 mmHg (35.0-45.0); ABG PARTIAL PRESSURE O2 67.3 mmHg (75.0-100.0); ABG TOTAL CO2 22.1 MEQ/L (22.0-29.0); ABG pH (ARTERIAL) 7.305 UNITS (7.350-7.450)
--- NOTE | 2016-12-27 21:49 | CR ---
DATE OF CONSULTATION: 12/27/2016 REFERRING PHYSICIAN: Dr. Jimenez INDICATION: Atrial fibrillation and sepsis. HISTORY OF THE PRESENT ILLNESS: Mr. Jackson is a 36-year-old man who has a history of polysubstance use including cocaine and heroin and alcohol. He apparently was sober for many years but then relapsed approximately a year ago. Most recently he started attempts to detox himself with Suboxone. He was home, was febrile for at least a week, had episodes of diarrhea and high fevers that he was treating with occasional use of nonsteroidal anti-inflammatory drugs (NSAIDS). Eventually, he was brought to the hospital for altered mental status. He was found to be septic. There was evidence for multiple infiltrates on his chest x-ray, including some cavitating lesions. He had dramatic abnormalities on his blood count with thrombocytopenia and neutropenia, and he had acute renal failure. He has been treated in the intensive care unit (ICU) with intravenous (IV) antibiotics and vigorous hydration. So far, he has escaped intubation. He initially presented in sinus rhythm, but today went into atrial fibrillation with rapid ventricular response. He received a single dose of digoxin 0.5 mg and a single dose of amiodarone 150 mg, but he remains in atrial fibrillation with heart rate fluctuating between 110 and 140 beats per minutes. An echocardiogram performed earlier today revealed severe left ventricular (LV) systolic dysfunction with ejection fraction (EF) around 30-35%, and there was a large vegetation on tricuspid valve with resulting approximately moderate tricuspid insufficiency. When I saw the patient at bedside, he is not sedated or intubated, but he is so weak that he cannot talk. Consequently, I was not able to get any history from him but from his extensive friends and family, including his parents present at the bedside and from chart. PAST MEDICAL HISTORY: 1. Chronic hepatitis C. 2. History of polysubstance abuse including cocaine, heroin and alcohol. FAMILY HISTORY: Not relevant. 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 History of drug use including very recent use. REVIEW OF SYSTEMS: According to his significant other, he has been sick for only about a week as far as high fevers are concerned, but it is certainly possible that he may have had fevers longer period of time. There is no prior history of cardiovascular disease. There is no history of stroke or kidney problems. The chronic hepatitis C has been known. The rest is unobtainable or not relevant. PHYSICAL EXAMINATION: Mr. Jackson is a young man who appears chronically and acutely ill. He is in ICU bed, is alert, he seems to nod appropriately to simple questions, but he is too weak to talk and he barely can move his extremities. Vital Signs: Blood pressure 111/53, heart rate has been between 110 to 150. He is saturating 91% on 15 liters of oxygen by nasal cannula. He is currently afebrile. His central venous pressure (CVP) is not high. Lungs reveal bilateral crackles and rhonchi, very loud sounds. Heart: Exam reveals irregular tachycardia. I do not appreciate any murmurs, but it is mostly overshadowed by loud respiratory sounds. The abdomen is mildly distended, appears firm, but I do not appreciate any guarding. The liver size is enlarged. Extremities: Have thromboembolism deterrent (SYDNIE) stockings, a small amount of peripheral edema is noted. Neurologically as above. I do not appreciate any obvious that petechiae or hemorrhaging. LABORATORY: CBC today reveals a hemoglobin of 11.5, hematocrit 33, platelet count 72,000 and WBC count 3.8 thousand. Basic metabolic panel: Potassium 4.9, BUN 235, creatinine 7.6 and glucose 179, calcium 6.6. The last lactate level was 3.2, magnesium 3.2, troponin 0.6 and total CK 3700 and CK-MB 49, INR 1.5. Toxicology screen was positive for opiates, benzodiazepines, cocaine and cannabinoids. Ethyl alcohol on presentation was less than 0.03, Tylenol less than 2 and salicylate less than 0.7. His liver function tests are markedly elevated with AST 308, ALT 184. ECG on presentation revealed sinus tachycardia with diffuse ST-T abnormalities, most pronounced in inferior and lateral leads. Cannot completely rule out myocardial infarction. Echocardiogram reveals severe global left ventricular systolic dysfunction, large vegetation tricuspid valve with approximately moderate tricuspid insufficiency, probably normal CVP and mild pulmonary hypertension and no further significant valvular disease. ASSESSMENT AND PLAN: Mr. Jackson is a young man with a history of polysubstance abuse including cocaine, heroin and alcohol who presents with tricuspid valve endocarditis resulting with severe sepsis and essentially septic shock. He has been vigorously volume resuscitated. He developed atrial fibrillation with rapid ventricular response. The presentation is consistent with tricuspid valve endocarditis with secondary sepsis, which is common in patients with IV drug use. The initial treatment involves treating as any sepsis and will be left to critical care attending and primary team. As far as the atrial fibrillation is concerned, I believe that the heart rate can be a little bit better but he probably would be similarly tachycardiac even if he is in sinus rhythm. I am going to give him one additional dose of digoxin, but I would not administer additional dose of digoxin and would treat him supportively with occasional use of amiodarone if his tachycardia gets truly severe. The principal issues to control the underlying infection. As far as the LV systolic dysfunction is concerned, it is probably at least in part acute due to his underlying severe sepsis, but I cannot rule out component of alcohol-induced cardiomyopathy. The appropriate multivitamins are being provided. I had a long discussion with his family at bedside and explained that his condition is critical and prognosis is guarded at best. I also explained to them that it is likely that his condition is actually going to deteriorate before he starts improving. Even in the best case scenario, I would not expect significant improvement for several days. Numerous questions were answered.
--- NOTE | 2016-12-27 22:45 | IPNPDOC ---
Text Note Date of Service The patient was seen on 12/27/16. NOTE Resident and evening attending were emergently paged on patient being more tachypneic than normal and has more distended abdomen. He was evaluated at bedside. Patient looked better than when I saw him yesterday. However, he stated he is very tired. A repeat CXR was done, also an ABG. CXR came back shows worsening of previous CXR from this morning. His ABG shows pH 7.3, PCO2 42.7, PO2 67.3, while he was on 20 L NC. Due to the worsening ABG, Pulmonary was contacted and recommend start patient on PRN BNIV. Patient has been discussed with Dr. Jose and Dr. Horta. VS,Colt, I+O VS, Colt, I+O Laboratory Tests 12/26/16 23:12 Calcium Level 7.3 L 12/27/16 06:37 Red Blood Count 3.91 L, Mean Corpuscular Volume 85.4, Mean Corpuscular Hemoglobin 29.5, Mean Corpuscular Hemoglobin Concent 34.5, Red Cell Distribution Width 14.2, Neutrophils (%) (Auto) 78.4 H, Lymphocytes (%) (Auto) 4.2 L, Monocytes (%) (Auto) 10.3 H, Eosinophils (%) (Auto) 0.0, Basophils (%) ( Auto) 0.2, Neutrophils # (Auto) 3.0, Lymphocytes # (Auto) 0.2 L, Monocytes # ( Auto) 0.4, Eosinophils # (Auto) 0.0, Basophils # (Auto) 0.0 12/27/16 12:35 Calcium Level 7.0 L 12/27/16 18:00 Calcium Level 6.6 L Vital Signs Date Time Temp Pulse Resp B/P (MAP) Pulse Ox O2 Delivery O2 Flow Rate FiO2 12/27/16 20:33 142 12/27/16 19:37 45 12/27/16 18:37 111/55 (73) 91 High Flow Cannula 15.0 12/27/16 18:07 97.6 I&O- Last 24 Hours up to 6 AM 12/27/16 05:59 Intake Total 3550 ml Output Total 230 ml Balance 3320 ml GME ATTESTATION GME ATTESTATION My preceptor for this patient encounter was physically present in the building during the encounter and was fully available. As needed, all aspects of the patient interview, examination, medical decision making process, and medical care plan development were reviewed and approved by the preceptor. Preceptor is aware and concurs with the plan as stated in the body of this note and will attest to such by his/her cosignature. YANDEL JUDGE DO Dec 27, 2016 22:45
[2016-12-28] VITALS (76 sets, daily range): BP systolic 84–139; BP diastolic 42–97
[2016-12-28 00:45] LABS: CALCIUM LEVEL 6.7 MG/DL (8.5-10.1); CREATININE FOR GFR 7.67 MG/DL (0.70-1.30); GLOMERULAR FILTRATION RATE 8.7 (>60)
[2016-12-28 00:46] LABS: POTASSIUM SERUM 5.3 MEQ/L (3.5-5.1)
[2016-12-28 01:13] LABS: ABG BASE EXCESS -3.8 (-2.0-2.0); ABG HCO3 21.3 MEQ/L (22.0-26.0); ABG PARTIAL PRESSURE CO2 38.9 mmHg (35.0-45.0); ABG PARTIAL PRESSURE O2 80.7 mmHg (75.0-100.0); ABG STANDARD HCO3 21.3 MEQ/L (22.0-26.0); ABG TOTAL CO2 22.5 MEQ/L (22.0-29.0); ABG pH (ARTERIAL) 7.357 UNITS (7.350-7.450)
[2016-12-28] MEDS: NS 1,000 ML IV SCH ×4 (01:29→21:33)
[2016-12-28] MEDS: SODIUM BICARBONATE 150 MEQ in D5W 1,000 ML IV SCH ×2 (01:37→04:30)
[2016-12-28] MEDS: LEVALBUTEROL 1.25 MG/0.5 ML CONCENTRATE NEB INH SCH ×4 (03:50→19:13)
[2016-12-28] MEDS ORDERED: METOPROLOL 5 MG/5 ML VIAL IV STA (03:52)
[2016-12-28] MEDS ORDERED: SODIUM CHLORIDE 0.9% 1000 ML IV ONE (04:00)
[2016-12-28] MEDS ORDERED: AMIODARONE HCL 150 MG in APPROPRIATE DILUENT 1 EA IV STA (04:09)
[2016-12-28 05:38] LABS: ADD MANUAL DIFFER YES; DIFF SLIDE NUMBER 1; MEAN CORPUSCULAR HEMOGLOBIN 28.4 pg (27.0-33.0); MEAN CORPUSCULAR HGB CONC 33.8 g/dl (32.0-36.5); RED CELL DISTRIBUTION WIDTH 14.7 % (11.5-14.5)
[2016-12-28 05:53] LABS: INR 1.55
[2016-12-28] MEDS: SODIUM CHLORIDE 0.9% INJ 10 ML SYR IV SCH ×3 (05:56→21:43)
[2016-12-28] MEDS: PIPERACILLIN/TAZOBACTAM SOD 2.25 GM in D5W MINI-BAG PLUS 50 ML IV SCH ×2 (05:56→12:55)
--- NOTE | 2016-12-28 06:00 | PHACANCOPD ---
PHARMACY VANCOMYCIN DOSING Pt Demographics Demographics Patient Age:36 , Weight:83.100 , Gender: male Adjusted Body Weight Date: 12/26/16, Adjusted Body Weight: [74.4] Kg Events Past 24 Hours Events Past 24 Hours: NO: Dialysis, Diuretic Therapy, Change in CrCl, Fever, Elevation in WBC, Pending Diagnostics, Pending Procedures, Other Vancomycin Vancomycin indication: SEPSIS Vancomycin Target Ranges: 15-20 mcg/ml Vancomycin Load Y/N: Yes Load Dose Date Time Vancomycin Load Dose: 1500MG Date: 12-27 Time: 0100 Vancomycin Dose Date: 12/28/16. Current Vancomycin Dose: [1000MG @1200] Intermittent Dosing?: Yes Labs Labs Item Value Date Time White Blood Count 3.8 K/mm3 L 12/27/16 0637 Creatinine 7.67 MG/DL H 12/27/16 2354 Blood Urea Nitrogen 246 MG/DL H 12/27/16 2354 Vital Signs Label Value Date Time Patient Temperature 98.9 degrees F 12/28/16 0407 Temperature Source Temporal 12/28/16 0407 Micro Microbiology 12/28/16 Blood Culture, Received Pending 12/26/16 Blood Culture - Preliminary, Resulted 12/26/16 Blood Culture - Preliminary, Resulted 12/27/16 Urine Culture, Received Pending Creatinine Clearance Date:12/26/16. Creatinine Clearance: [13]. Pending Labs Random -17 in am Assessment and Plan Maintaining Current Dose?: Yes Reason for dose change: No Dose Change Pharmacist Note Pharmacist Note Date: 12/27/16. Pharmacist note:Random level at 0500 was 23.6. 750mg ordered for 1200 today. Level should be below 20 by that time based on previous levels. Random level ordered for 08-17 in am. Will continue to monitor and make adjustments as needed. TOM BRUNSON [facility] Dec 28, 2016 06:00
[2016-12-28 06:02] LABS: ALBUMIN 1.1 GM/DL (3.2-5.2); ALBUMIN/GLOBULIN RATIO 0.29 (1.00-1.93); BILIRUBIN,DIRECT 3.4 MG/DL (0.0-0.2); CALCIUM LEVEL 6.2 MG/DL (8.5-10.1); CREATININE FOR GFR 7.38 MG/DL (0.70-1.30); GLOMERULAR FILTRATION RATE 9.1 (>60); TOTAL PROTEIN 4.9 GM/DL (6.4-8.2)
[2016-12-28 06:03] LABS: POTASSIUM SERUM 5.7 MEQ/L (3.5-5.1)
--- NOTE | 2016-12-28 06:03 | RO ---
DATE OF PROCEDURE: 12/26/2016 TIME: Patient had procedure done was at 2340 hours. PREPROCEDURE DIAGNOSIS: POSTPROCEDURE DIAGNOSIS: PROCEDURE: Central venous catheter placement at the right internal jugular. RESIDENT DOCTOR: Dr. Nayely Colin ATTENDING: Dr. Wilson ANESTHESIA: INDICATION: For hemodynamic monitoring and IV access as well as possible low blood pressure. DESCRIPTION OF PROCEDURE: A time-out was completed, verifying correct patient and procedure, site, positioning, and special equipment needed. Patient was placed in decumbent position, appropriate for central line placement based on vein to be cannulated. Patient's right leg was prepped and draped in sterile fashion, and 1% lidocaine was used to anesthetize the surrounding skin area. A triple-lumen catheter was introduced into the right internal jugular using Seldinger procedure and guided with ultrasound. The catheter was threaded smoothly over the guidewire, and appropriate blood return was obtained. Each lumen of the catheter was evaluated for air and flushed with sterile saline. Catheter was then sutured in place and to the skin. Sterile dressing was applied. Perfusion to the extremity distal to the point of catheter insertion was checked and found to be adequate. Dr. Wilson was present for the entire procedure. Estimated blood loss was minimal. Patient tolerated the procedure well, and there were no complications. Will obtain a portable chest x-ray to check for line placement. Patient has been discussed with attending doctor, Dr. Wilson. My preceptor for this patient encounter was Dr. Tory Wilson. The preceptor was physically present in the building during the encounter and was fully available. As needed, all aspects of the patient interview, examination, medical decision making process, and medical care plan development were reviewed and approved by the preceptor. The preceptor is aware and concurs with the plan as stated in the body of this note and will attest to such by his/her cosignature.
[2016-12-28 06:04] LABS: PHOSPHORUS LEVEL 9.2 MG/DL (2.5-4.9)
[2016-12-28 06:06] LABS: PLATELET COUNT, AUTOMATED 19 k/mm3 (150-450)
[2016-12-28 06:11] LABS: CRENATED RBC 3+
[2016-12-28] MEDS ORDERED: SOD POLYSTYRENE SULFONATE SUSP 15 GM/60 ML UD PO ONE (06:15)
[2016-12-28] MEDS ORDERED: CALCIUM GLUCONATE 1,000 MG in D5W MINI-BAG PLUS 100 ML IV ONE (06:15)
--- NOTE | 2016-12-28 07:37 | REP ---
Portable chest, 09:39 p.m., single AP view, patient sitting: Comparisons are on this same date at 07:15 01:00 a.m. and 07:[address] at 12:48 a.m.. Additionally there is a portable chest from 12/26/2016. There are multiple confluent and bilateral focal densities that have worsened from all comparison studies. By CT some of these densities are cavitating. The diaphragms and cardiac margins are obscured. Therefore, I unable to determine whether there are pleural effusions or cardiomegaly on the basis of this study. There is a right IJ central venous catheter with the tip in the right atrium, unchanged. Impression: Worsening bilateral confluent focal densities some of which are cavitating by CT. Signed by Luther Jarrett MD 12/28/2016 07:29 A
[2016-12-28 07:47] LABS: ERYTHROCYTE SEDIMENTATION RATE 25 mm/hr (0-15)
[2016-12-28 07:58] LABS: MAGNESIUM LEVEL 2.8 MG/DL (1.8-2.4)
[2016-12-28] MEDS: **NOTE PATIENT COMMENT** MISC XX SCH (08:23)
--- NOTE | 2016-12-28 08:29 | IPN ---
DATE: 12/28/2016 Mr. Jackson's condition is probably slightly worse than it was yesterday. Overnight, he was started on BiPAP for respiratory support. He remained in atrial fibrillation with a fast heart rate between 120 and 150 beats per minute. I was called around 4:00 a.m. and give him a second single dose of amiodarone 150 mg to slow down the rate at least slightly. On my rounds this morning, he is obtunded, difficult to arouse. Blood pressure has been hanging in 90s systolic with mean pressure in mid to high 60s. Heart rate as above, atrial fibrillation. He has been afebrile. Saturation has been in mid 90s on BiPAP. His fluid out balance yesterday was about 5 liters positive. He is already about 1800 mL positive. He made about 615 mL of urine yesterday. Weight is 83.1. His jugular venous pulse does not appear high. Lungs reveal crackles and rhonchi throughout both lung orona, not as prominent as yesterday. Heart exam reveals irregular tachycardia. I do not appreciate any murmur, gallop or rub. Abdomen is somewhat distended, but I do not appreciate any guarding per se. Liver size appears enlarged. There is 1+ edema. Laboratory corrigan, his INR today is 1.55. Basic metabolic panel potassium 5.7, BUN 242, creatinine 7.4, glucose 117, calcium 6.2, phosphorus 9.2, bilirubin 4. His cardiac enzymes are pending. Albumin is 1.1. His CBC this morning WBC count 6, hemoglobin 11.3, hematocrit 33.4 and platelet count 19,000. His ABGs at 1 o'clock last night pH 7.36, pCO2 39, pO2 81 and bicarb on 21. ASSESSMENT/PLAN: Mr. Jackson is a 36-year-old man who has a longstanding history of IV drug abuse and presents with septic shock. He was found to have tricuspid vegetation and clearly the whole scenario is consistent with endocarditis of the tricuspid valve. He is growing gram-positive cocci from blood. I was asked to see him because of atrial fibrillation. It is clearly an expression of severity of his underlying disease. He received 0.75 mg of IV digoxin and because he has albumin that is very low and he has virtually zero urine output, I believe that he his loading was completed. At this point, I would leave the atrial fibrillation alone and used as needed to administration of amiodarone for a heart rate that exceeds 150 beats per minute. Otherwise, the management is going to remain to be fully supportive. The issue of potential surgery can be addressed down the road, but generally speaking, tricuspid valve gets rarely repaired in IV drug users because the risk of reinfection and also generally severe tricuspid insufficiency is well tolerated.
--- NOTE | 2016-12-28 09:50 | CCN ---
DATE: 12/28/2016 START TIME: 814 STOP TIME: 901 I again attended Danny Jackson here in the intensive care unit. The patient has been examined. Available medical records have been reviewed. I have spoken at length this morning with his mother and significant other at the bedside, as well as, with cardiology, primary service and nephrology. Through the night, he had worsening hypoxemia and blood gas done at that time showed normalization of his pCO2 at 42.7, consistent with impending respiratory muscle failure. He was then placed on noninvasive support initially at 14/10 and then dropped to 12/10 as he had reasonable tidal volumes. Blood gas done at that time showed a pH of 7.357, pCO2 38.8 and pO2 of 80.7 and this is on 40% FiO2 via the noninvasive mask. Current CVP of 10. Blood pressures varied from 80s to the 140s, currently 97 systolic. Heart rate as high as 166 with burst of atrial fibrillation yesterday. Currently in the 120s with a sinus mechanism. He has made negligible amounts of urine. Echocardiogram shows global left ventricular systolic function with an ejection fraction (EF) of 35-40%. Most notably however is an approximately 2 cm tricuspid valve vegetation consistent with his presentation. Other available laboratories showed a white blood cell count of 6.0 today, hemoglobin 11.3, and platelet count 19,000 with 89% segs and 0 bands. Sodium 135, potassium 5.7, chloride 91, CO2 24, BUN 242, creatinine 7.38. Total bilirubin down to 4.0. CK has dropped to 2,327. Troponin 0.4. Albumin markedly diminished at 1.1. Last INR this morning of 1.55 is essentially unchanged. Chest x-ray done at the time of his decline last evening is essentially an expiratory film. On exam, vital signs as outlined above. He is tachypneic, but much less so. He is more comfortable from a respiratory standpoint. He is moving reasonable tidal volumes in excess of 400 to 500 on the noninvasive mask. Pupils are reactive. Sclerae clear. He is responsive to voice and appropriately interactive. Jugular venous system difficult to assess with the mask in place. Chest shows diminished, but symmetric expansion. No accessory muscle use. Much less inspiratory and expiratory noise today, although there are some dependent crackles and some occasional rhonchi. No convincing egophony or rubs. Cardiac exam is tachycardic. Peripheral pulses are diminished. There is trace dependent edema. Abdomen shows diminished, but audible bowel sounds. No obvious organomegaly or masses. Extremities without cyanosis or clubbing. Neurologically, he moves all extremities and is appropriately interactive. The most pressing problems requiring my presence at the bedside are: 1. Acute hypoxic respiratory failure, multifactorial. 2. Septic pulmonary emboli from a tricuspid valve endocarditis with Staphylococcus aureus. 3. Renal failure. 4. Thrombocytopenia. 5. Hepatic insufficiency, acute on chronic. 6. Staphylococcus aureus septicemia. 7. Polysubstance drug abuse. As outlined above, I have spoken with the remainder of his care team this morning as well as his family. For now, we will continue IV antibiotics. Fortunately, he has not required pressors at this point. My hopes is that his overall depressed cardiac function may recover somewhat as it may be on the basis of sepsis as well as his reported heavy alcohol use over the last year. Regarding his endocarditis, for now it is medical management. We await the sensitivities on the Staphylococcus aureus as if they are williamson sensitive we can stop his vancomycin. He is to begin continuous ultrafiltration today via nephrology. I believe the plans are to stop the bicarbonate drip and I am not at all in disagreement with that. We will continue IV fluids for now as needed. We need to begin to address nutrition and likely will begin TPN once his BUN has diminished. Overall, however, he remains quite critically ill. His prognosis remains guarded at best. I left the bedside at 0902 hours. 47 minutes of critical care time delivered at the bedside, not including procedures.
[2016-12-28] MEDS ORDERED: HEPARIN 1,000 UNITS/ML 10ML VIAL (FOR RADIOLOGY& DIALYSIS ONLY) XX ONE (10:00)
[2016-12-28] MEDS ORDERED: VANCOMYCIN HCL 750 MG, VIAL MATE ADAPTER 1 EACH in D5W 250 ML IV ONE (12:00)
[2016-12-28] MEDS: THIAMINE INJection 100 MG, FOLIC ACID 1 MG, MULTIVITAMIN -ADULT INJECTION 10 ML in NS 1... IV SCH (14:56)
--- NOTE | 2016-12-28 17:25 | IPN ---
DATE: 12/28/2016 SUBJECTIVE: Patient seen and examined in the room today. Patient is on bilevel positive airway pressure (BiPAP). Patient continues to have aggressive intravenous (IV) resuscitation. Patient is not awake to answer questions. Per telemetry patient does have intermittent elevation of atrial fibrillation. A few doses of amiodarone were given in the last 24 hours. Patient also received digoxin to control the heart rate. OBJECTIVE: VITAL SIGNS: Temperature is 97.3, pulse is 134, respirations 44, blood pressure is 89/47, pulse oximetry 95% on the BiPAP. GENERAL: Patient is responsive to voice. Not able to answer many questions. CARDIOVASCULAR: Irregularly irregular, heart rate greater than 130 during encounter. RESPIRATORY: Coarse lung sounds throughout. ABDOMEN: Soft, nontender. EXTREMITIES: Positive edema. No sign of cyanosis. LABORATORY DATA: WBC is 6, hemoglobin 11.3, hematocrit 33.4, platelet count is 19. Sodium is 135, potassium 5.7, chloride 91, carbon dioxide 24, BUN 242, creatinine 7.38, GFR is 9.1, fasting glucose 117, calcium 6.2, phosphorus 9.2, magnesium 2.8. Total bilirubin is 4, direct bilirubin is 3.4, AST 164, ALT 142, alkaline phosphatase is 69. Total CK is 2327. Troponin I is 0.4. C-reactive protein 26.6, total protein 4.9, albumin 1.1. FRANCO negative. ASSESSMENT AND PLAN: 1. Severe sepsis. Patient is on aggressive intravenous (IV) fluid resuscitation. Patient is currently on vancomycin and Zosyn. Vancomycin is dosed intermittent based on the levels. Patient's blood cultures preliminarily show Staphylococcus aureus. Sensitivity still pending. Patient had a cardiac echocardiogram performed yesterday. The result came back positive for heart failure with ejection fraction (EF) 30-35%, and there is a large vegetation on the tricuspid valve, resulting in moderate insufficiency. Currently patient is requiring BiPAP for oxygen support. We appreciate horseback [employer] s assistance. 2. Atrial fibrillation with elevated troponin. Patient has started loading of digoxin. Intermittently patient receiving amiodarone. Heart rate is improving. Appreciate cardiology, Dr. Ricks's, assistance. Patient does have a history of significant alcohol abuse. Patient also has history of cocaine use. Now patient has significant tricuspid vegetation resulting in moderate insufficiency. Troponin started to decrease, the mild elevation possibly due to demand ischemia. 3. Bilateral pneumonia. Patient is on broad-spectrum antibiotics of vancomycin and Zosyn to treat for severe sepsis or septic shock. 4. Multiple drug abuse. Patient has been using heroin chronically. The urine toxicology also shows positive cocaine, benzodiazepine, and marijuana. 5. End-stage renal disease. Dr. Grewal has been consulted. Will determine if patient will benefit from dialysis. I have consulted Dr. Nieves for the dialysis catheter insertion. After the dialysis catheter is in place, patient will start dialysis in the intensive care unit (ICU) room. 6. Hepatic injury with elevation of transaminitis and other liver enzymes. The gastrointestinal (GI) specialist, Dr. Beach, has been consulted, and he feels that the elevation of the liver function tests is due to current sepsis and also the rhabdomyolysis. The patient also has a significant history of alcohol abuse and has untreated hepatitis C. Recommend treating patient's active infectious disease process, and the patient's liver functions did start to show some improvement. 7. Metabolic acidosis. Patient has been on the bicarbonate drip. Patient started to show some signs of fluid overload. Patient's bicarbonate level returned to normal range. Bicarbonate drip will be discontinued today. 8. Thrombocytopenia. Peripheral smear was ordered and showed consistent with acute infectious process. No blasts were identified. Currently patient has a platelet count of 19. Patient does have a significant history of alcohol abuse. 9. Metabolic encephalopathy secondary to uremia and sepsis. 10. Rhabdomyolysis. Aggressive IV replacement. Total CK is improving. 11. Deep vein thrombosis (DVT) prophylaxis. Due to severe thrombocytopenia, patient on thromboembolic deterrents (TEDs) and sequential compression devices.
[2016-12-28] MEDS: PIPERACILLIN/TAZOBACTAM SOD 3.375 GM in D5W MINI-BAG PLUS 50 ML IV SCH (17:57)
[2016-12-28 18:37] LABS: MAGNESIUM LEVEL 2.7 MG/DL (1.8-2.4); PHOSPHORUS LEVEL 8.3 MG/DL (2.5-4.9)
[2016-12-28 18:38] LABS: MEAN CORPUSCULAR HEMOGLOBIN 28.5 pg (27.0-33.0); MEAN CORPUSCULAR HGB CONC 33.6 g/dl (32.0-36.5); MEAN CORPUSCULAR VOLUME 84.9 fl (80.0-96.0); RED CELL DISTRIBUTION WIDTH 14.7 % (11.5-14.5); WHITE BLOOD COUNT 7.6 K/mm3 (4.0-10.0)
[2016-12-28 18:43] LABS: CALCIUM LEVEL 6.9 MG/DL (8.5-10.1); CREATININE FOR GFR 6.07 MG/DL (0.70-1.30); GLOMERULAR FILTRATION RATE 11.4 (>60)
[2016-12-28 18:50] LABS: POTASSIUM SERUM 5.2 MEQ/L (3.5-5.1)
[2016-12-28] MEDS: PANTOPRAZOLE 40MG INJ (PROTONIX) (C9113) IV SCH (20:39)
[2016-12-28] MEDS: CALCIUM GLUCONATE 1,000 MG in D5W MINI-BAG PLUS 100 ML IV SCH ×2 (20:41→21:52)
[2016-12-28] MEDS: LIDOCAINE 5% (LIDODERM) PATCH TD SCH (20:41)
[2016-12-29] VITALS (67 sets, daily range): BP systolic 75–136; BP diastolic 38–94
[2016-12-29] MEDS: PIPERACILLIN/TAZOBACTAM SOD 3.375 GM in D5W MINI-BAG PLUS 50 ML IV SCH ×2 (00:06→06:07)
[2016-12-29 00:32] LABS: MAGNESIUM LEVEL 2.5 MG/DL (1.8-2.4)
[2016-12-29 00:33] LABS: CREATININE FOR GFR 4.9 MG/DL (0.70-1.30); GLOMERULAR FILTRATION RATE 14.5 (>60); POTASSIUM SERUM 4.9 MEQ/L (3.5-5.1)
[2016-12-29 00:57] LABS: PHOSPHORUS LEVEL 6.4 MG/DL (2.5-4.9)
[2016-12-29] MEDS: CALCIUM GLUCONATE 1,000 MG in D5W MINI-BAG PLUS 100 ML IV SCH ×2 (01:01→02:20)
[2016-12-29] MEDS: NS 1,000 ML IV SCH ×2 (01:04→07:31)
[2016-12-29] MEDS ORDERED: AMIODARONE HCL 150 MG in APPROPRIATE DILUENT 1 EA IV STA ×3 (02:37→21:23)
[2016-12-29] MEDS ORDERED: AMIODARONE HCL 150 MG/100 ML PREMIXED BAG (NEXTERONE) As Ordered ONE ×2 (02:38→06:56)
[2016-12-29] MEDS: LEVALBUTEROL 1.25 MG/0.5 ML CONCENTRATE NEB INH SCH ×4 (02:49→20:51)
[2016-12-29] MEDS: SODIUM CHLORIDE 0.9% INJ 10 ML SYR IV SCH ×3 (06:00→21:43)
[2016-12-29 06:38] LABS: ADD MANUAL DIFFER YES; DIFF SLIDE NUMBER 1; MEAN CORPUSCULAR HEMOGLOBIN 28.8 pg (27.0-33.0); MEAN CORPUSCULAR HGB CONC 33.8 g/dl (32.0-36.5); MEAN CORPUSCULAR VOLUME 85.2 fl (80.0-96.0); RED CELL DISTRIBUTION WIDTH 14.5 % (11.5-14.5); WHITE BLOOD COUNT 13.8 K/mm3 (4.0-10.0)
[2016-12-29 06:39] LABS: INR 1.41; PLATELET COUNT, AUTOMATED 35 k/mm3 (150-450)
[2016-12-29 07:07] LABS: ALBUMIN/GLOBULIN RATIO 0.28 (1.00-1.93); BILIRUBIN,DIRECT 2.9 MG/DL (0.0-0.2); BILIRUBIN,TOTAL 3.2 MG/DL (0.2-1.0); CALCIUM LEVEL 7.2 MG/DL (8.5-10.1); CREATININE FOR GFR 4.26 MG/DL (0.70-1.30); GLOMERULAR FILTRATION RATE 17.1 (>60); MAGNESIUM LEVEL 2.4 MG/DL (1.8-2.4); PHOSPHORUS LEVEL 6.7 MG/DL (2.5-4.9); TOTAL PROTEIN 4.6 GM/DL (6.4-8.2); VANCOMYCIN RANDOM 14.7 UG/ML
[2016-12-29 07:09] LABS: POTASSIUM SERUM 5.4 MEQ/L (3.5-5.1)
[2016-12-29 07:25] LABS: CRENATED RBC 1+; DOHLE BODIES 2+
[2016-12-29] MEDS ORDERED: CALCIUM GLUCONATE 1,000 MG in D5W MINI-BAG PLUS 100 ML IV STA (08:34)
[2016-12-29] MEDS: **NOTE PATIENT COMMENT** MISC XX SCH (08:35)
[2016-12-29 09:15] LABS: ABG BASE EXCESS -4.2 (-2.0-2.0); ABG HCO3 24.6 MEQ/L (22.0-26.0); ABG PARTIAL PRESSURE O2 94.6 mmHg (75.0-100.0); ABG STANDARD HCO3 20.9 MEQ/L (22.0-26.0); ABG TOTAL CO2 26.5 MEQ/L (22.0-29.0)
[2016-12-29 09:17] LABS: ABG PARTIAL PRESSURE CO2 63.6 mmHg (35.0-45.0); ABG pH (ARTERIAL) 7.205 UNITS (7.350-7.450)
[2016-12-29] MEDS: NAFCILLIN SOD 2 GM in D5W MINI-BAG PLUS 100 ML IV SCH ×4 (10:57→23:15)
[2016-12-29 12:18] LABS: IONIZED CALCIUM 4.4 MG/DL (4.5-5.3)
[2016-12-29 12:32] LABS: CALCIUM LEVEL 8.2 MG/DL (8.5-10.1); CREATININE FOR GFR 3.79 MG/DL (0.70-1.30); GLOMERULAR FILTRATION RATE 19.6 (>60); MAGNESIUM LEVEL 2.5 MG/DL (1.8-2.4); PHOSPHORUS LEVEL 6.5 MG/DL (2.5-4.9)
[2016-12-29 12:49] LABS: ABG BASE EXCESS -3.2 (-2.0-2.0); ABG HCO3 24.4 MEQ/L (22.0-26.0); ABG PARTIAL PRESSURE CO2 55.3 mmHg (35.0-45.0); ABG PARTIAL PRESSURE O2 72.8 mmHg (75.0-100.0); ABG STANDARD HCO3 21.7 MEQ/L (22.0-26.0); ABG TOTAL CO2 26.1 MEQ/L (22.0-29.0); ABG pH (ARTERIAL) 7.263 UNITS (7.350-7.450)
[2016-12-29 12:59] LABS: POTASSIUM SERUM 5.4 MEQ/L (3.5-5.1)
[2016-12-29] MEDS ORDERED: CALCIUM GLUCONATE 1,000 MG in D5W MINI-BAG PLUS 100 ML IV ONE ×2 (13:00→19:00)
--- NOTE | 2016-12-29 13:18 | REP ---
PORTABLE CHEST: AP portable view of the chest is performed and compared to prior study of 12/27/2016. Dense bilateral infiltrates are seen diffusely. There is no definite change when compared to the prior study. Right central venous catheter is again present with the tip in the right atrium. IMPRESSION: Stable exam. Signed by Luther Quispe MD 12/29/2016 04:59 P
--- NOTE | 2016-12-29 13:19 | IPN ---
DATE: 12/29/2016 Mr. Jackson's condition remains approximately the same. He remains in intensive care unit (ICU) on BiPap. He has been for the most part maintaining his oxygenation even though he remains very tachypneic. Overnight, he had atrial fibrillation with rapid ventricular response (RVR) and received a total of two doses of 150 mg of amiodarone. This morning, his heart rate is around 130s. He has been afebrile. Blood pressure 101/60. Saturation is 91% on 60% FiO2 at the last documented reading. Fluid balance yesterday was about 5 liters positive. No weight is documented this morning as yet. His urine output yesterday was only 207 mL. He received a dialysis catheter through the right groin and has been undergoing dialysis. He is obtunded, but seems to open his eyes at times. It seems to me that he is too weak to really move much. Lungs reveal loud crackles that are completely overshadowing his heart sounds. They are throughout both lung orona. Abdomen is mildly distended, but soft. I do not appreciate any guarding. There is a small amount of peripheral edema. Laboratory-corrigan, CBC reveals a hemoglobin 11.1, hematocrit 32, platelet count 35,000 and WBC 13.8. Basic metabolic panel with potassium 5.4, BUN 145, creatinine 4.3, glucose 67. Albumin is still low at 1.0. Liver function tests with ALT 105, alkaline phosphatase 114 and magnesium was 2.4. Chest x-ray reveals bilateral cavitating pneumonia. ASSESSMENT/PLAN: Mr. Jackson is a 36-year-old man with history of IV drug abuse who presented with septic shock. 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 This is complicated by multiorgan failure with respiratory failure and renal failure. There is severe thrombocytopenia and he also has severe left ventricular systolic dysfunction. Overall, his prognosis is certainly guarded at best. He remains critically ill, but so far has not been requiring pressors and has been avoiding intubation. From my perspective, I will continue administering as needed amiodarone to control tachycardia over about 140, but otherwise heart rate is in 120s and 130s and probably appropriate to his condition. He certainly cannot get any slowing agent at this point that has negative inotropic properties. Also with renal failure, the administration of digoxin is fraught with complications. I will continue following the patient with you. The situation was discussed with Dr. Jin and Dr. Witt.
--- NOTE | 2016-12-29 13:20 | CCN ---
DATE: 12/29/2016 START TIME: 0840 hours STOP TIME: 0950 hours I again attended Danny Jackson here in the intensive care unit. I have spoken at length with cardiology, nephrology and infectious diseases as well this morning. I have spoken at length as well with his significant other at the bedside. Overnight, T-max 98.2, blood pressures vary between 91 and 136. Heart rate generally in the 1-teens to 120s with a sinus mechanism. Respiratory rate remains 36-42 without obvious accessory muscle use. He has had a mild increase in his FiO2 requirements. Chest x-ray done this morning shows better aeration. He has diffuse infiltrates and cavities. Triple lumen catheter in good position. No other acute findings. Most recent available laboratories show an arterial blood gas done on an inspiratory pressure of 12, expiratory pressure of 10, rate of 4, FiO2 of 60%, has a pH of 7.205, pCO2 of 63.6, pO2 of 94.6. Sodium of 140, potassium of 5.4, chloride 103, CO2 25, BUN down to 145, creatinine 4.26. Glucose 67. Bilirubin down to 3.2, most of the vast majority of which is direct at 2.9. Albumin down to 1.0. White blood cell count 13.8, hemoglobin 11.1, platelets up to 35,000. 95% segs, no bands today. Blood cultures and urine culture all have grown Staphylococcus Aureus sensitive to oxacillin. On exam, he is sedate but does open his eyes. Pupils do react. Sclera clear. Trache is in the midline. No obvious jugular venous distention (JVD). Chest shows coarse scattered rhonchi throughout. There is reasonable air entry. I do believe there are some dependent crackles. No rubs. Cardiac exam distant, tachycardic but regular. Peripheral pulses easily palpable. There is diffuse trace edema. Abdomen shows active but diminished bowel sounds. No organomegaly or masses. Extremities shows no cyanosis or clubbing. No mottling. Neurologically, he is sedate but does respond to voice and stimuli. Not as alert as yesterday. Most recent CVP varies between 8 to 13. Medication list has been reviewed. Vancomycin has been discontinued this morning. He remains on Zosyn. He has not required vasopressors. The most pressing problems requiring my presence at the bedside: 1. Respiratory acidosis. 2. Staphylococcus Aureus septicemia with cavitary pneumonia. 3. Endocarditis with Staphylococcus with visible tricuspid vegetation. 4. Septic pulmonary emboli. 5. Renal failure. 6. Hepatitis B surface antigen positive. 7. Polysubstance abuse. 8. Cardiomyopathy with diminished ejection fraction. 9. Protein calorie malnutrition. We have made adjustments to his noninvasive mask in hopes of improving his ventilatory status. However, given his current status there is a very high likelihood that he will progress to require formal endotracheal intubation and mechanical ventilation. If so, he is at very high risk for pneumothorax in view of his multiple cavities. I have spoken with the family in this regard. I have spoken with nephrology. We will begin TPN today. Staphylococcus Aureus is sensitive to oxacillin but not penicillin G. I have spoken at length with infectious diseases and they will make changes in his antimicrobials today. He is to continue under the auspice of nephrology with continuous ultrafiltration. They may try to remove some fluid today, although his CVP is only 13 and his pressure is somewhat soft. He may not tolerate that very well. At this point, in view of the above, his prognosis remains guarded at best. There is still a very high likelihood that he may worsen and there is a distinct possibility that he may not survive this hospitalization. I left the bedside at 0950 hours. 70 minutes of critical care time was delivered at the bedside, not including procedures.
[2016-12-29 14:13] LABS: HEPATITIS C QUANTITATION HCV Not Detected IU/mL (.)
[2016-12-29] MEDS: THIAMINE INJection 100 MG, FOLIC ACID 1 MG, MULTIVITAMIN -ADULT INJECTION 10 ML in NS 1... IV SCH (15:02)
--- NOTE | 2016-12-29 16:08 | IPN ---
DATE: 12/29/2016 SUBJECTIVE: The patient is seen and examined in the room today. The patient is awake and alert. The patient had a continuous positive airway pressure (CPAP) mask on and cannot really communicate verbally. OBJECTIVE: VITAL SIGNS: Temperature is 97.6, pulse is 129, respirations of 40, blood pressure is 101/60, pulse oximetry is 91% with FiO2 of 60%. GENERAL: The patient is alert and awake, not able to answer questions on the continuous positive airway pressure (CPAP). HEENT: Normocephalic, atraumatic. CARDIOVASCULAR: Tachycardic, positive S1, S2. RESPIRATORY: Coarse lung sounds throughout. ABDOMEN: Soft, nontender. EXTREMITIES: Diffuse edema of the extremity, mainly upper extremities. No sign of cyanosis. LABORATORY DATA: WBC 13.8, hemoglobin 11.1, hematocrit 32.7, platelet count is 35. Sodium is 140, potassium 5.4, chloride is 102, carbon dioxide 26, BUN 126, creatinine is 3.79, GFR is 19.6, fasting glucose 98, calcium is 8.9, phosphorus 6.5, magnesium 2.5. Chest x-ray shows stable examination. ASSESSMENT AND PLAN: 1. Severe sepsis. The patient continued on the aggressive IV fluid resuscitation. The patient has been on vancomycin. Blood cultures and urine cultures all came back positive for methicillin-sensitive Staphylococcus aureus (MSSA). We will refer to the infectious disease specialist for antibiotic adjustments. 2. Atrial fibrillation with elevated troponin. Cardiology has been assisting with the patient's care. The heart rate is maintained at around 120. 3. Bilateral pneumonia. The patient is on broad-spectrum antibiotics to treat for severe sepsis or septic shock. 4. Multiple drug abuse. The patient's urine toxicology showed positive cocaine, benzodiazepine, and marijuana and the patient had been using heroin. 5. End-stage renal disease. The patient started on continuous ultrafiltration since yesterday. Femoral dialysis catheter was placed by Dr. Nieves yesterday. The patient is being continued on the ultrafiltration in the intensive care unit (ICU). 6. Hepatic injury with elevation of transaminitis and other liver enzymes. With active treatment of sepsis and rhabdomyolysis, the patient's liver functions continue to improve, but the patient does have a significant history of alcohol abuse and the patient also has untreated hepatitis C which also complicates the patient's liver recovery. 7. Metabolic acidosis. The patient was on the bicarbonate drip previously. Level is in the normal range. 8. Thrombocytopenia. It has started to improve. 9. Metabolic encephalopathy secondary to uremia and sepsis. 10. Rhabdomyolysis, on aggressive IV fluid. The patient is on ultrafiltration. Total creatine kinase (CK) is improving. 11. Deep vein thrombosis (DVT) prophylaxis, on thromboembolic-deterrent stockings (TEDS) and sequential compression devices.
[2016-12-29] MEDS ORDERED: SODIUM CHLORIDE 0.9% 1000 ML IV ONE (16:30)
[2016-12-29 17:08] LABS: CENTRAL VEN BASE EXCESS -2.3; CENTRAL VEN PARTL PRESSURE CO2 68.8 mmHg; CENTRAL VEN PARTL PRESSURE O2 47.4 mmHg; CENTRAL VEN TOTAL CO2 28.9 MEQ/L; CENTRAL VENOUS HCO3 26.8 MEQ/L; CENTRAL VENOUS PH 7.208 UNITS
[2016-12-29] MEDS ORDERED: NOREPINEPHRINE 4 MG/4 ML AMP As Ordered ONE (17:12)
[2016-12-29] MEDS ORDERED: NOREPINEPHRINE BITARTRATE 8 MG in D5W 500 ML IV SCH (17:30)
[2016-12-29] MEDS: NOREPINEPHRINE BITARTRATE 8 MG in D5W 500 ML IV SCH ×6 (17:30→19:18)
[2016-12-29 17:46] LABS: IONIZED CALCIUM 4.5 MG/DL (4.5-5.3)
[2016-12-29 17:56] LABS: MEAN CORPUSCULAR HEMOGLOBIN 28.9 pg (27.0-33.0); MEAN CORPUSCULAR HGB CONC 33.2 g/dl (32.0-36.5); RED CELL DISTRIBUTION WIDTH 14.7 % (11.5-14.5); WHITE BLOOD COUNT 20.9 K/mm3 (4.0-10.0)
[2016-12-29] MEDS ORDERED: SODIUM CHLORIDE IV SCH ×4 (18:00)
[2016-12-29] MEDS ORDERED: SODIUM ACETATE IV SCH ×4 (18:00)
[2016-12-29] MEDS ORDERED: [UNRECOGNIZED DRUG - OTHER] IV SCH ×4 (18:00)
[2016-12-29] MEDS ORDERED: FAT EMULSION IV 20% 500 ML IV SCH (18:00)
[2016-12-29 18:03] LABS: CALCIUM LEVEL 7.9 MG/DL (8.5-10.1); CREATININE FOR GFR 3.52 MG/DL (0.70-1.30); GLOMERULAR FILTRATION RATE 21.3 (>60); MAGNESIUM LEVEL 2.6 MG/DL (1.8-2.4)
[2016-12-29 18:12] LABS: POTASSIUM SERUM 5.5 MEQ/L (3.5-5.1)
[2016-12-29] MEDS: HumaLOG INSULIN (NovoLOG) PER UNIT SC SCH (18:16)
[2016-12-29 18:29] LABS: ABG BASE EXCESS -4.6 (-2.0-2.0); ABG HCO3 23.6 MEQ/L (22.0-26.0); ABG PARTIAL PRESSURE CO2 58.4 mmHg (35.0-45.0); ABG PARTIAL PRESSURE O2 86.9 mmHg (75.0-100.0); ABG STANDARD HCO3 20.6 MEQ/L (22.0-26.0); ABG TOTAL CO2 25.4 MEQ/L (22.0-29.0)
[2016-12-29 18:31] LABS: ABG pH (ARTERIAL) 7.225 UNITS (7.350-7.450)
[2016-12-29] MEDS ORDERED: ETOMIDATE INJ 20MG/10ML VIAL As Ordered ONE (19:03)
[2016-12-29] MEDS ORDERED: ROCURONIUM BROMIDE 50 MG/5 ML VIAL/SYRINGE As Ordered ONE (19:04)
[2016-12-29] MEDS ORDERED: ETOMIDATE INJ 20MG/10ML VIAL IV STA (19:23)
[2016-12-29] MEDS ORDERED: ROCURONIUM BROMIDE 50 MG/5 ML VIAL/SYRINGE IV ONE (19:30)
--- NOTE | 2016-12-29 19:49 | REP ---
Portable chest, 07:39 p.m., single AP view, the patient supine, post intubation: There is an endotracheal tube with the tip terminating satisfactorily at the level of the aortic arch, above the faith. Extensive diffuse bilateral infiltrates are again identified, unchanged. There is a right IJ central venous catheter with the tip in the right atrium, unchanged. Signed by Luther Jarrett MD 12/29/2016 07:40 P
--- NOTE | 2016-12-29 19:51 | ECGEPIP ---
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
[2016-12-29 20:38] LABS: ABG BASE EXCESS -6.1 (-2.0-2.0); ABG HCO3 25.5 MEQ/L (22.0-26.0); ABG PARTIAL PRESSURE O2 88.6 mmHg (75.0-100.0); ABG STANDARD HCO3 19.4 MEQ/L (22.0-26.0); ABG TOTAL CO2 28.2 MEQ/L (22.0-29.0)
[2016-12-29 20:39] LABS: ABG PARTIAL PRESSURE CO2 87.3 mmHg (35.0-45.0); ABG pH (ARTERIAL) 7.083 UNITS (7.350-7.450)
[2016-12-29] MEDS: PANTOPRAZOLE 40MG INJ (PROTONIX) (C9113) IV SCH (21:43)
[2016-12-29] MEDS: CHLORHEXIDINE GLUCONATE 0.12 % 15ML UDC (PERIDEX ORAL RINSE) MT SCH (21:43)
[2016-12-29 21:49] LABS: ABG BASE EXCESS -6.4 (-2.0-2.0); ABG HCO3 25.1 MEQ/L (22.0-26.0); ABG PARTIAL PRESSURE CO2 85.3 mmHg (35.0-45.0); ABG PARTIAL PRESSURE O2 92.6 mmHg (75.0-100.0); ABG STANDARD HCO3 19.2 MEQ/L (22.0-26.0); ABG TOTAL CO2 27.7 MEQ/L (22.0-29.0); ABG pH (ARTERIAL) 7.086 UNITS (7.350-7.450)
--- NOTE | 2016-12-29 22:37 | IPN ---
DATE: 12/28/2016 Mr. Jackson is seen this morning on his bedside. He is currently on BiPap due to worsening respiratory status. He remains hypotensive and tachycardiac. Apparently he was in rapid atrial fibrillation yesterday and still he is in atrial fibrillation. However, ventricular rate has improved slightly. His blood pressure is still below 100. His blood cultures have been positive for staph aureus. PHYSICAL EXAMINATION: Temperature 97.6 degrees Fahrenheit, heart rate 126 per minute and respiratory rate 40 per minute. Blood pressure 97/54 mmHg and oxygen saturation 93% on BiPap. Intake and output records from yesterday showed total intake 5650 and output only 615 mL with a positive balance over 5 liters. The patient has a right-sided internal jugular vein triple-lumen catheter. His neck veins are now markedly distended. He is on BiPap. His heart sounds are tachycardiac and irregular. Lungs have bilateral rhonchi. Abdomen: Soft and mildly distended. Bowel sounds are present. Extremities: Have no cyanosis or clubbing. Neurologically he is slightly obtunded today. Today's labs show WBC count 6.0, hemoglobin 11.3 and hematocrit 33.4. Platelets 19,000. Sodium 135 and potassium 5.7. BUN 242 and creatinine 7.38. Glucose 117, calcium 6.2 and phosphorus 9.2. CPK is down to 2327. C-reactive protein is 26.6. Blood cultures are positive for staph aureus. PROBLEMS: 1. Oliguric acute renal failure. This is related to septic shock. The patient has only minimal urine output. We initially felt that with IV fluid hydration his kidney function might improve. However, he remains oligoanuric. He did have slight decrease in the serum creatinine but no significant change in his BUN. At present he is in need for dialysis and I have discussed with his mother. The patient's mother consented for dialysis and we will make arrangements for CRRP. 2. Hyperkalemia is related to acute renal failure. This will be corrected with dialysis. I would suggest to not give him any Kayexalate. 3. Respiratory failure related to sepsis, bilateral pneumonia and slight volume overload. At present he is in septic shock and did need IV fluids. He remains on BiPap. We are starting CRRP that will help with his volume status and electrolytes. 4. Septic shock with staph aureus bacteremia. The patient did receive vancomycin earlier and his vancomycin level was 25.8 yesterday morning and today it is 23.6. I suggest to continue with vancomycin depending upon his levels. He is also receiving Zosyn 3.37 grams every 6 hours.
--- NOTE | 2016-12-29 22:49 | CCN ---
DATE: 12/29/2016 Critical care time was 1 hour this excludes all procedures I was called this evening for his hypotension. Patient has been on continuous renal replacement therapy (CRRT) with septic pulmonary emboli from a tricuspid valve endocarditis methicillin-sensitive Staphylococcus aureus (MSSA). He got a small fluid bolus. He has been in acute renal failure requiring CRRT. I started a Levophed drip. His SvcO2 is 70 and suggests adequate output which is important due to his history of systolic heart failure on his most recent echocardiogram. At this point in time, it does not appear that dobutamine is warranted for an inotropic agent. He has evidence of atrial fibrillation with rapid ventricular response (RVR) on the telemetry. Because arterial blood gas has not been improving, patient's mentation is decreasing and he is becoming more hypoxic and hypotensive. I intubated the patient urgently. He is now on ventilator with lung protective strategy. His next blood gas is pending. He remains severely hypoxic during intubation and I had a suspicion of aspiration on top of his septic emboli. He remains on nafcillin. PHYSICAL EXAMINATION: GEN: Sedated on mechanical ventilation HEENT: After intubation, pupils are pinpoint, but reactive. Sclerae are clear and anicteric. Mucous membranes are moist. Tongue is midline. No fasciculations. NECK: Supple. No tracheal deviation or mass. Right internal jugular (IJ) is in place without surrounding erythema or exudate. PULMONARY: Pulmonary sounds are significantly abnormal, very loud, rhonchorous sounds, suppressing the ability to auscultate cardiac sounds well. I do hear an irregularly irregular rate. I believe I hear a murmur, however it is difficult given the severity of the breath sounds, even after suctioning I cannot auscultate cardiac sounds clearly. ABDOMEN: Soft, nontender, nondistended. No active bowel sounds. EXTREMITIES: No cyanosis, clubbing, or edema. SKIN: He has an ulcer underneath his right heal. He has chronic bed sores on his posterior coccyx from the time of admission. LABORATORY EVALUATION: Shows sodium of 140, potassium 5.5, chloride 103, bicarbonate 27, BUN 110, creatinine 3.52, hemoglobin 11.1, with a platelet count of 39, white count is 20.9, INR is 1.4, PTT is 30. Arterial blood gas is 7.23, pCO2 is 58, PaO2 is 87. MSSA grew not only in both blood cultures, but also in the urine culture. IMPRESSION: Multiorgan system failure from tricuspid valve endocarditis with systolic heart failure, hypoxic hypercarbic respiratory failure, septic pulmonary emboli, oliguric renal failure, lactic acidosis, thrombocytopenia, metabolic encephalopathy, with atrial arrhythmias. I also suspect he likely had embolic phenomenon to his kidneys as he is growing methicillin-sensitive Staphylococcus aureus (MSSA) in his urine. PLAN: Support with: 1. Respiratory failure. Hypoxic hypercarbic support with mechanical ventilation at acute respiratory distress syndrome (ARDS) tidal volumes. Monitor for aspiration. 2. Septic pulmonary emboli. Treated with nafcillin for methicillin-sensitive Staphylococcus aureus (MSSA). 3. Tricuspid valve endocarditis. Patient is at risk for further embolism. I actually believe he embolized to the kidneys as he has methicillin-sensitive Staphylococcus aureus (MSSA) in the urine. 4. Thrombocytopenia. Severe in nature secondary to the severity of his illness. 5. Atrial fibrillation with rapid ventricular response (RVR), secondary to endocarditis, systolic heart failure, and critical illness. Appreciate Dr. Ricks's input. 6. Oliguric renal failure requiring continuous renal replacement therapy (CRRT) . Will continue CRRT until patient's renal function recovers. 7. Protein calorie malnourishment. I have initiated tube feeds. Will start trickle feeds at 30 mL/hour, increase to 50 mL/hour if patient is tolerating tube feeds, and will stop total parenteral nutrition (TPN) tomorrow. 8. Gastrointestinal (GI) prophylaxis with Protonix. 9. Deep venous thrombosis (DVT) prophylaxis with thromboembolism deterrents (TEDs) and [place] as patient has thrombocytopenia and, therefore, heparin is contraindicated. 10. Thiamine for history of alcohol abuse. Monitor for detoxification. 11. Metabolic encephalopathy. Will perform sedation vacations every morning to ensure preserved neurologic function. Patient is severely critically ill. Multiple organ system failure. High risk of . [facility]
[2016-12-29] MEDS: MIDAZOLAM INJ 2 MG/2 ML VIAL (J2250) IV PRN (23:38)
[2016-12-30] VITALS (101 sets, daily range): BP systolic 74–124; BP diastolic 38–81; O2SAT 93
[2016-12-30 00:18] LABS: CALCIUM LEVEL 7.9 MG/DL (8.5-10.1); CREATININE FOR GFR 3.35 MG/DL (0.70-1.30); GLOMERULAR FILTRATION RATE 22.6 (>60); MAGNESIUM LEVEL 2.5 MG/DL (1.8-2.4); PHOSPHORUS LEVEL 7.5 MG/DL (2.5-4.9)
[2016-12-30 00:22] LABS: POTASSIUM SERUM 5.3 MEQ/L (3.5-5.1)
[2016-12-30] MEDS: LEVALBUTEROL 1.25 MG/0.5 ML CONCENTRATE NEB INH SCH ×4 (01:41→20:09)
[2016-12-30] MEDS: NAFCILLIN SOD 2 GM in D5W MINI-BAG PLUS 100 ML IV SCH ×6 (02:52→23:09)
[2016-12-30] MEDS: MIDAZOLAM INJ 2 MG/2 ML VIAL (J2250) IV PRN ×8 (02:52→22:19)
[2016-12-30] MEDS: NOREPINEPHRINE BITARTRATE 8 MG in D5W 500 ML IV SCH ×3 (02:53→20:35)
[2016-12-30 06:02] LABS: ABG BASE EXCESS -4.2 (-2.0-2.0); ABG HCO3 24.7 MEQ/L (22.0-26.0); ABG PARTIAL PRESSURE O2 98.9 mmHg (75.0-100.0); ABG STANDARD HCO3 20.9 MEQ/L (22.0-26.0); ABG TOTAL CO2 26.7 MEQ/L (22.0-29.0)
[2016-12-30 06:05] LABS: ABG PARTIAL PRESSURE CO2 65.9 mmHg (35.0-45.0); ABG pH (ARTERIAL) 7.191 UNITS (7.350-7.450)
[2016-12-30] MEDS: SODIUM CHLORIDE 0.9% INJ 10 ML SYR IV SCH ×3 (06:28→21:48)
[2016-12-30 06:33] LABS: INR 1.43
[2016-12-30 06:39] LABS: ADD MANUAL DIFFER YES; DIFF SLIDE NUMBER 1; MEAN CORPUSCULAR HEMOGLOBIN 29.6 pg (27.0-33.0); MEAN CORPUSCULAR VOLUME 89.7 fl (80.0-96.0); RED CELL DISTRIBUTION WIDTH 14.9 % (11.5-14.5); WHITE BLOOD COUNT 18.8 K/mm3 (4.0-10.0)
[2016-12-30 06:40] LABS: PLATELET COUNT, AUTOMATED 41 k/mm3 (150-450)
[2016-12-30] MEDS: HumaLOG INSULIN (NovoLOG) PER UNIT SC SCH ×4 (06:45→17:42)
[2016-12-30 06:48] LABS: ALBUMIN/GLOBULIN RATIO 0.29 (1.00-1.93); BILIRUBIN,DIRECT 3.6 MG/DL (0.0-0.2); BILIRUBIN,TOTAL 4.6 MG/DL (0.2-1.0); CALCIUM LEVEL 7.6 MG/DL (8.5-10.1); CREATININE FOR GFR 3.05 MG/DL (0.70-1.30); GLOMERULAR FILTRATION RATE 25.1 (>60); MAGNESIUM LEVEL 2.4 MG/DL (1.8-2.4); PHOSPHORUS LEVEL 6.5 MG/DL (2.5-4.9); TOTAL PROTEIN 4.5 GM/DL (6.4-8.2)
[2016-12-30 07:03] LABS: BANDS 1 % (< 11)
[2016-12-30 07:04] LABS: ANISOCYTOSIS 1+; CRENATED RBC 1+; DOHLE BODIES 2+
--- NOTE | 2016-12-30 08:03 | IPN ---
DATE: 12/30/2016 Mr. Jackson got intubated yesterday. He was also started on norepinephrine drip. He continues to be hemofiltrated. This morning in the intensive care unit (ICU), he is obtunded, but arousable. He would open eyes to tactile or verbal stimulation. I do not appreciate any purposeful movements. Last blood pressure 95/55. Heart rate has been in low 100s. He converted to sinus rhythm at approximately 3 or 4 o'clock this morning. He saturates in the low to mid 90s on 75% FIO2. Fluid balance yesterday was 3800 positive. Weight is documented 90.3 kg. Lungs reveal again very loud crackles and rhonchi throughout, completely overshadowing his heart sounds. I do not appreciate any murmur. Abdomen is soft. No guarding. I do not appreciate any organomegaly. Bowel sounds are positive. There is starting to be diffuse edema. Laboratory-corrigan, CBC: Hemoglobin is 10.5, hematocrit 31.7, platelet count 41, 000 and WBC count 18.8. Potassium 5, sodium 141, BUN 88, creatinine 3.1 and glucose 179. Albumin is 1.0. ABG reveals pH 7.2 with pCO2 of 66 and pO2 199. Chest x-ray reveals worsening bilateral infiltrates and he is starting to develop a picture consistent with acute respiratory distress syndrome (ARDS). ASSESSMENT/PLAN: Mr. Jackson is a 66-year-old man who has history of IV drug abuse with numerous agents involved. He presents with septic shock and is found to have Staphylococcus aureus tricuspid valve endocarditis. His respiratory status deteriorated yesterday and that led to intubation and in spite of invasive ventilation his inner environment is still quite acidotic and he retains CO2, but the trend is in a favorable direction. He also has renal failure and is anuric, hepatic failure and severe thrombocytopenia. I was involved because of atrial fibrillation. He has been getting intermittent doses of amiodarone and to my surprise converted to sinus rhythm last night. It is certainly a favorable development, but unfortunately I believe that the risk of relapse is very high. He was started on 100 mg twice a day by Dr. Deshpande, which is acceptable even though the dose is relatively low. I still would favor p.r.n. dosing of amiodarone IV if needed. His condition is certainly critical and the chances for survival are not overly optimistic, but he continues to fight. I am hoping that once the septic picture gets controlled that he will slowly start recovering his organ dysfunction, but I am afraid that the extent of pneumonia is just too overwhelming. [facility]WE[facility]
--- NOTE | 2016-12-30 08:11 | REP ---
Portable chest, 07:03 a.m., single AP view, the patient semi upright: Comparison is 12/29/2016. Extensive diffuse bilateral infiltrates are again identified, unchanged. The endotracheal tube remains in satisfactory location with the tip above the faith. There is a nasogastric tube, not present previously. The precise location of the distal tip is excluded at the inferior film margin. Signed by Luther Jarrett MD 12/30/2016 08:03 A
--- NOTE | 2016-12-30 08:13 | RO ---
DATE OF PROCEDURE: 12/29/2016 PREOPERATIVE DIAGNOSIS: Hypoxic hypercarbic respiratory failure. POSTOPERATIVE DIAGNOSIS: Hypoxic hypercarbic respiratory failure. PROCEDURE: Endotracheal intubation. SURGEON: Dr. Deshpande [employer]: None. ANESTHESIA: Rapid sequence intubation was used including etomidate at 20 mg and rocuronium at 50 mg. CONSENT: The patient is full code, this was deemed an emergent procedure. DESCRIPTION OF PROCEDURE: I was called to the patient's bedside for respiratory failure. The patient was metabolically encephalopathic and unable to protect his airway with severe hypotension and worsening oxygen saturations. I placed the patient in a supine position and urgently intubated him as he was full code. After the patient was preoxygenated with 100% FIO2 in the sniffing position, the rapid sequence intubation was initiated with etomidate and rocuronium. The vocal cords were reviewed using a 4 blade on the glide scope. There was a grade 2 view. An 8.0 endotracheal tube easily passed through the vocal cords. There were gastric contents in the posterior pharynx, dark brown gastric contents. These were suctioned. The tube was secured in place after confirmation of placement via direct visualization of the endotracheal tube passing the vocal cords, mist on the tube, end-tidal CO2 monitoring and auscultation. A chest x-ray was performed and the endotracheal tube was slightly high at 22 cm; therefore, it was advanced by 2 cm to 24 cm at the teeth. There were no observed complications. MTDD
[2016-12-30] MEDS ORDERED: CALCIUM GLUCONATE 1,000 MG in D5W MINI-BAG PLUS 100 ML IV ONE ×2 (08:15→13:00)
[2016-12-30] MEDS: CHLORHEXIDINE GLUCONATE 0.12 % 15ML UDC (PERIDEX ORAL RINSE) MT SCH ×2 (08:37→20:44)
[2016-12-30] MEDS: AMIODARONE 100MG TABLET (PACERONE) PO SCH ×2 (08:42→20:45)
[2016-12-30] MEDS: MORPHINE 2 MG/ML 1ML SYRINGE IV PRN (10:19)
[2016-12-30 11:36] LABS: ABG BASE EXCESS -4.9 (-2.0-2.0); ABG HCO3 22.2 MEQ/L (22.0-26.0); ABG PARTIAL PRESSURE O2 115.1 mmHg (75.0-100.0); ABG STANDARD HCO3 20.4 MEQ/L (22.0-26.0); ABG TOTAL CO2 23.8 MEQ/L (22.0-29.0); ABG pH (ARTERIAL) 7.257 UNITS (7.350-7.450)
[2016-12-30 11:51] LABS: IONIZED CALCIUM 4.6 MG/DL (4.5-5.3)
[2016-12-30 12:14] LABS: CALCIUM LEVEL 7.7 MG/DL (8.5-10.1); CREATININE FOR GFR 2.74 MG/DL (0.70-1.30); GLOMERULAR FILTRATION RATE 28.5 (>60); MAGNESIUM LEVEL 2.4 MG/DL (1.8-2.4); PHOSPHORUS LEVEL 5.1 MG/DL (2.5-4.9); POTASSIUM SERUM 4.7 MEQ/L (3.5-5.1)
[2016-12-30] MEDS ORDERED: SODIUM CHLORIDE 0.9% 1000 ML IV ONE (13:45)
[2016-12-30] MEDS: THIAMINE HCL 200 MG/2 ML VIAL (J3411) IV SCH (15:38)
[2016-12-30 17:51] LABS: MEAN CORPUSCULAR HEMOGLOBIN 29.6 pg (27.0-33.0); MEAN CORPUSCULAR HGB CONC 32.8 g/dl (32.0-36.5); MEAN CORPUSCULAR VOLUME 90.2 fl (80.0-96.0); WHITE BLOOD COUNT 20.1 K/mm3 (4.0-10.0)
[2016-12-30 17:57] LABS: IONIZED CALCIUM 4.8 MG/DL (4.5-5.3)
[2016-12-30] MEDS ORDERED: SODIUM CHLORIDE IV SCH ×6 (18:00)
[2016-12-30] MEDS ORDERED: FAT EMULSION IV 20% 500 ML IV SCH (18:00)
[2016-12-30] MEDS ORDERED: SODIUM ACETATE IV SCH ×6 (18:00)
[2016-12-30] MEDS ORDERED: [UNRECOGNIZED DRUG - OTHER] IV SCH ×6 (18:00)
[2016-12-30 18:16] LABS: CREATININE FOR GFR 2.78 MG/DL (0.70-1.30); MAGNESIUM LEVEL 2.4 MG/DL (1.8-2.4); PHOSPHORUS LEVEL 5.3 MG/DL (2.5-4.9); POTASSIUM SERUM 4.9 MEQ/L (3.5-5.1)
[2016-12-30] MEDS: VASOPRESSIN INJ 20 UNITS in NS 500 ML IV SCH (19:06)
[2016-12-30] MEDS: PANTOPRAZOLE 40MG INJ (PROTONIX) (C9113) IV SCH (20:44)
[2016-12-31] VITALS (68 sets, daily range): BP systolic 19–132; BP diastolic 17–63; O2SAT 90–97
[2016-12-31] MEDS: HumaLOG INSULIN (NovoLOG) PER UNIT SC SCH ×3 (00:28→12:05)
[2016-12-31] MEDS: MIDAZOLAM INJ 2 MG/2 ML VIAL (J2250) IV PRN ×7 (00:28→09:51)
[2016-12-31 00:32] LABS: IONIZED CALCIUM 4.7 MG/DL (4.5-5.3)
[2016-12-31 01:19] LABS: CALCIUM LEVEL 7.7 MG/DL (8.5-10.1); CREATININE FOR GFR 2.73 MG/DL (0.70-1.30); GLOMERULAR FILTRATION RATE 28.6 (>60); MAGNESIUM LEVEL 2.4 MG/DL (1.8-2.4); PHOSPHORUS LEVEL 5.3 MG/DL (2.5-4.9); POTASSIUM SERUM 5.1 MEQ/L (3.5-5.1)
[2016-12-31] MEDS: LEVALBUTEROL 1.25 MG/0.5 ML CONCENTRATE NEB INH SCH ×2 (01:23→08:06)
[2016-12-31] MEDS: VASOPRESSIN INJ 20 UNITS in NS 500 ML IV SCH ×2 (02:55→12:06)
[2016-12-31] MEDS: NAFCILLIN SOD 2 GM in D5W MINI-BAG PLUS 100 ML IV SCH (03:00)
[2016-12-31 04:10] LABS: ABG BASE EXCESS -3.8 (-2.0-2.0); ABG HCO3 25.7 MEQ/L (22.0-26.0); ABG PARTIAL PRESSURE O2 86.8 mmHg (75.0-100.0); ABG STANDARD HCO3 21.2 MEQ/L (22.0-26.0)
[2016-12-31 04:11] LABS: ABG PARTIAL PRESSURE CO2 75.2 mmHg (35.0-45.0); ABG pH (ARTERIAL) 7.151 UNITS (7.350-7.450)
[2016-12-31] MEDS: NOREPINEPHRINE BITARTRATE 8 MG in D5W 500 ML IV SCH (04:39)
--- NOTE | 2016-12-31 05:05 | IPN ---
DATE OF SERVICE: 12/29/2016 Mr. Jackson is seen this morning on his bedside. He has not been doing well due to septic shock and acute renal failure. He is also in atrial fibrillation. He has been on bilevel positive airway pressure (BiPAP) which continues. Continuous renal replacement therapy (CRRT) was started yesterday due to acute renal failure and septic shock. This has been working reasonably well. The patient had an echocardiogram done, which showed large vegetations on his tricuspid valve. His blood cultures have been positive for Staphylococcus aureus. His serology has been positive for hepatitis B surface antigen. The patient has been treated initially with vancomycin and Zosyn. His vancomycin level today is 14.7 while yesterday it was 23.6. The patient remains somewhat lethargic, but he does respond to verbal stimuli. PHYSICAL EXAMINATION: Heart rate is in 130s and respiratory rate 45-50 per minute. Blood pressure 105/64 mmHg and oxygen saturation 99% on BiPAP with 60% FiO2. Intake and output records from yesterday show total intake 5125 and output only 207 mL. His neck veins are quite prominent. He has a central line in right internal jugular vein. He remains on BiPAP at this point. His heart sounds are tachycardiac and irregular in rhythm. Lungs have bilateral rhonchi. Abdomen is soft and bowel sounds are hypoactive. Extremities have no cyanosis or clubbing. Neurologically, he is lethargic, but he does respond to verbal stimuli appropriately. Today's labs show WBC count 13.8, hemoglobin 11.1 and hematocrit 32.7. Platelets are 35,000. Most recent blood gas today showed a pH of 7.20, pCO2 63.6, pO2 94.6 and bicarbonate 21. His chemistry today showed sodium 140, potassium 5.4, CO2 of 25, BUN 145 and creatinine 4.26. Calcium level is 7.2 and magnesium 2.4. Bilirubin is down to 3.2, AST 105, ALT 114 and alkaline phosphatase 60. Serum albumin is 1.0. PROBLEMS: 1. Septic shock. 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 He has been treated with vancomycin and Zosyn. Now his antibiotic is being switched to nafcillin by infectious disease. 2. Oliguric acute renal failure. This is a result of septic shock. The patient remains on continuous renal replacement therapy (CRRT) which is functioning reasonably well. His BUN and creatinine has improved significantly and acidosis has also improved. We will continue with CRRT which is being managed by Dr. Jin. 3. Hyperkalemia. This is mild and likely to correct with ongoing dialysis. No other intervention is indicated. 4. Malnutrition. The patient is being started on total parenteral nutrition (TPN) as he is currently not taking anything by mouth. He has been chronically malnourished. 5. Thrombocytopenia. His platelets have improved slightly and there is no active bleeding at this point. This is most likely related to septicemia. 6. Anemia. His anemia is stable and does not need any intervention at this point. Overall his condition remains quite critical. I have discussed with the patient's mother and significant other and explained to them.
[2016-12-31] MEDS: SODIUM CHLORIDE 0.9% INJ 10 ML SYR IV SCH (05:44)
[2016-12-31 05:48] LABS: IONIZED CALCIUM 4.7 MG/DL (4.5-5.3)
[2016-12-31 05:56] LABS: ADD MANUAL DIFFER YES; DIFF SLIDE NUMBER 1; MEAN CORPUSCULAR HEMOGLOBIN 29.1 pg (27.0-33.0); MEAN CORPUSCULAR HGB CONC 32.3 g/dl (32.0-36.5); MEAN CORPUSCULAR VOLUME 90.2 fl (80.0-96.0); RED CELL DISTRIBUTION WIDTH 15.3 % (11.5-14.5); WHITE BLOOD COUNT 15.4 K/mm3 (4.0-10.0)
[2016-12-31 05:57] LABS: INR 1.21
[2016-12-31 06:12] LABS: ALBUMIN/GLOBULIN RATIO 0.26 (1.00-1.93); BILIRUBIN,DIRECT 3.1 MG/DL (0.0-0.2); BILIRUBIN,TOTAL 4.5 MG/DL (0.2-1.0); CALCIUM LEVEL 7.5 MG/DL (8.5-10.1); CREATININE FOR GFR 2.7 MG/DL (0.70-1.30); GLOMERULAR FILTRATION RATE 28.9 (>60); MAGNESIUM LEVEL 2.6 MG/DL (1.8-2.4); PHOSPHORUS LEVEL 5.7 MG/DL (2.5-4.9); TOTAL PROTEIN 4.9 GM/DL (6.4-8.2)
[2016-12-31 06:22] LABS: PLATELET COUNT, AUTOMATED 34 k/mm3 (150-450)
--- NOTE | 2016-12-31 06:59 | PHACANCOPD ---
PHARMACY VANCOMYCIN DOSING Pt Demographics Demographics Patient Age:36 , Weight:98.000 , Gender: male Adjusted Body Weight Date: 12/26/16, Adjusted Body Weight: [74.4] Kg Events Past 24 Hours Events Past 24 Hours: NO: Dialysis, Diuretic Therapy, Change in CrCl, Fever, Elevation in WBC, Pending Diagnostics, Pending Procedures, Other Vancomycin Vancomycin indication: ENDOCARDITIS Vancomycin Target Ranges: 15-20 mcg/ml Vancomycin Load Y/N: Yes Load Dose Date Time Vancomycin Load Dose: 1500MG Date: 12-31 Time: 0800 Vancomycin Dose Date: 12/31/16. Current Vancomycin Dose: [1000MG q24h] Intermittent Dosing?: No Labs Labs Item Value Date Time White Blood Count 15.4 K/mm3 H 12/31/16 0526 Creatinine 2.70 MG/DL H 12/31/16 0526 Blood Urea Nitrogen 68 MG/DL H 12/31/16 0526 Micro Microbiology 12/31/16 Blood Culture, Received Pending 12/28/16 Blood Culture - Preliminary, Resulted No Growth after 72 hours. All specime... 12/26/16 Blood Culture - Final, Complete Staphylococcus Aureus 12/26/16 Blood Culture - Final, Complete Staphylococcus Aureus 12/29/16 Gram Stain - Final, Resulted 12/29/16 Sputum Culture, Resulted Pending 12/27/16 Urine Culture - Final, Complete Staphylococcus Aureus Creatinine Clearance Date:12/31/16. Creatinine Clearance: [39]. Pending Labs Trough 08-20 @0800 Assessment and Plan Maintaining Current Dose?: Yes Reason for dose change: No Dose Change Pharmacist Note Pharmacist Note Date: 12/27/16. Pharmacist note:Dosed at 1000mg q24h after a 1500mg load. Trough ordered for 08-20 @0800 (after only one dose due to pt's fragile renal state.). Will continue to monitor and make adjustments as needed. TOM BRUNSON PHARMACY Dec 31, 2016 06:59
[2016-12-31] MEDS ORDERED: VANCOMYCIN HCL 500 MG in D5W MINI-BAG PLUS 100 ML IV ONE (07:00)
[2016-12-31 07:38] LABS: BANDS 1 % (< 11); NUCLEATED RED BLOOD CELL 1 % (0-0); TOXIC GRANULATION 1+; TOXIC VACUOLATION 1+
[2016-12-31 07:39] LABS: ANISOCYTOSIS 1+; HYPOCHROMASIA 1+
[2016-12-31 08:07] LABS: HBsAG SCREEN Negative (Negative)
--- NOTE | 2016-12-31 08:20 | REP ---
Portable chest x-ray: Sitting AP view: History: Respiratory failure. Comparison study: 12/30/2016. Findings: Endotracheal tube is in good position at the level of proximal clavicles. An NG tube enters left upper quadrant of the abdomen. A right internal jugular central venous line is seen with its tip in the expected location of the superior vena cava. EKG monitoring electrodes overlie the chest. Extensive bilateral heterogeneous pulmonary parenchymal opacities are again seen essentially unchanged. Signed by John Navarro MD 12/31/2016 11:05 A
[2016-12-31] MEDS ORDERED: VANCOMYCIN HCL 1,000 MG, VIAL MATE ADAPTER 1 EACH in D5W 250 ML IV SCH (09:00)
--- NOTE | 2016-12-31 09:09 | CCN ---
DATE: 12/31/2016 Critical care time was 1 hour, this excludes all procedures I was called urgently this morning for hypoxia. The patient had desaturated to 85% on 100% FIO2, PEEP of 10 with saturation of 80% for over 10 minutes. I ordered an arterial blood gas and chest x-ray to be performed while I immediately came to the intensive care unit. On my arrival, his oxygen saturation increased to low 90s on 100%. Arterial blood gas shows worsening respiratory acidosis despite no change in the vent settings. He remains with a high respiratory rate in the 30s and tidal volumes per acute respiratory distress syndrome (ARDS) protocol. 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 This morning he does appear edematous and his central venous pressure (CVP) is elevated at 14. I suspect his edema is from hypoalbuminemia. Tube feeds have been initiated. He is having bowel movements, therefore will increase tube feeds to 70 mL an hour. We can then discontinue total parenteral nutrition (TPN). Remains very critical; has difficulty with oxygenation, ventilation and severe septic emboli with evidence of lung necrosis, brown sputum from his endotracheal tube. He is also having increased vasopressor requirements. PHYSICAL EXAMINATION: He is in sinus tachycardia, pulse 103-115, blood pressure is 103/56. This is on vasopressin 0.04 at 20 mcg. Oxygen saturation as mentioned above ranging 80s to 90s on 100% FIO2 10 of PEEP. Respiratory rate is 33, temperature was 99.2. General: The patient is tachypneic on mechanical ventilation. He occasionally will open his eyes, receiving as needed (p.r.n.) versed. Too sick to be able to do sedation vacation this morning. HEENT: Sclerae are edematous. Pupils are approximately 5 mm and reactive. Mucous membranes are moist. Tongue is midline. Endotracheal tube is in place with minimal secretions currently. Neck is supple. No tracheal deviation or mass. No cervical, supraclavicular or axillary adenopathy. Cardiac: I am now able to hear a holosystolic murmur, in sinus tachycardia. Pulmonary: Actually less rhonchorous than yesterday. Decreased breath sounds throughout. He is dull to percussion at the bases. Abdomen: Soft, nontender, nondistended with positive bowel sounds. No discernible hepatosplenomegaly. Extremities: There is edema of the arms now, edema of the legs. No cyanosis or clubbing. Fairly good perfusion despite being on vasopressor therapy. Skin is pale without rashes, jaundice or bruising. Musculoskeletal: No muscle wasting. No joint effusion. Wounds. He does have some skin breakdown on his sacrum and heel that was present on admission. LABS: Laboratory evaluation is pending for this morning. Chemistry panel from 0013 this morning shows a sodium of 136, potassium 5.1, chloride 102, bicarb of 27 and anion gap of 7, BUN of 74, creatinine of 2.73, glucose of 207. IMAGING STUDIES: Chest x-ray shows diffuse infiltrate. No significant improvement. Endotracheal tube is in good position. The tip of the central line is at the superior vena cava (SVC) in appropriate position. Arterial blood gas from this morning shows a pH of 7.15, pCO2 of 75 and a pAO2 of 87. IMPRESSION: 1. Hypoxic hypercarbic respiratory failure with septic emboli, lung necrosis and probable ARDS. The patient is on ARDS protocol. He has quite a bit of hypercarbia, however, it is well known that permissive hypercarbia is warranted in the face of ARDS and associated with better outcomes. 2. Septic emboli with septic shock, on vasopressor therapy and nafcillin. The patient remains in a very critical state. Vasopressor requirements have increased over the past 24 hours which make his prognosis even more guarded. 3. Renal failure on CRRT. I am thankful for the excellent care provided by the Nephrology team, Dr. Jin or Dr. Grewal. Will discuss attempting to take off fluid, delicate balance between his respiratory status and his blood pressure, however, CVP is elevated. 4. Atrial fibrillation. On low-dose amiodarone. Currently in sinus. If the patient develops atrial fibrillation, would consider IV bolus. I appreciate Dr. Ricks's imput. 5. Protein malnutrition. Will increase tube feeds to 70 mL an hour and discontinue TPN to decrease fluid administration. 6. GI prophylaxis with Protonix. 7. DVT prophylaxis with TEDs. 8. Thrombocytopenia. Will await this morning's labs. No indication for transfusion at this point in time. 9. Anemia. No evidence of acute blood loss. Likely secondary to acute illness and frequent blood draws. 10. Systolic heart failure with estimated ejection fraction of 30-35%. SCV02 has been in the 70% range. Will recheck this morning to ensure adequate cardiac output. 11. Neuro prophylaxis. A sedation vacation is being avoided this morning due to the severity of his hypoxia. He has NPO boots. Prognosis is extremely guarded. High risk of . MTDD
[2016-12-31] MEDS: CHLORHEXIDINE GLUCONATE 0.12 % 15ML UDC (PERIDEX ORAL RINSE) MT SCH (09:36)
[2016-12-31] MEDS: AMIODARONE 100MG TABLET (PACERONE) PO SCH (09:36)
[2016-12-31] MEDS: THIAMINE HCL 200 MG/2 ML VIAL (J3411) IV SCH (09:37)
--- NOTE | 2016-12-31 10:00 | IPN ---
DATE OF SERVICE: 12/31/2016 Mr. Jackson, unfortunately, has not been doing well. He is now on two pressors and still blood pressure is relatively soft. He also requires a lot more FiO2. Most of the night, he has been on 100% FiO2 to maintain saturation in 90s. He is obtunded. I do not appreciate any response to verbal or painful stimuli. Heart rate is in 100s to 100- teens. Blood pressure, the last one was 90/47. His fluid balance yesterday was positive about 4.5 liters. His central venous pressure (CVP) is about 14 or 15. Weight documented 98 kg. His lungs reveal extensive crackles and rhonchi bilaterally completely overshadowing his heart sounds. His abdomen is firm. I do not appreciate any guarding per se. There is a diffuse edema. There is a central line, and there is also constant hemodialysis/hemofiltration via catheter in his right groin. Laboratory-corrigan, CBC: Hemoglobin is 8.5, hematocrit 26, platelet count is 34,000, WBC count is 15.2. Basic metabolic panel: Potassium 5.0, BUN 68, creatinine 2.7, and glucose 200. His ABGs from 4 o'clock this morning: pH 7.15, pCO2 75, and central line makes venous oxygen was 80%, indicative of good cardiac output. ASSESSMENT AND PLAN: Mr. Jackson is a 36-year-old man who has a long history of intravenous (IV) drug abuse presenting with sepsis related to tricuspid valve endocarditis. Unfortunately, it appears that his multiorgan failure that is progressive; and at this point, I am afraid that the respiratory condition will not be sustainable with life very long. For the time being, full support is being continued, but I am afraid that the prognosis further deteriorated since yesterday. I was involved because of atrial fibrillation (AFib) that has not been a problem lately. In last 48 hours, he has been maintaining sinus rhythm.
[2016-12-31] MEDS ORDERED: NOREPINEPHRINE 4 MG/4 ML AMP As Ordered ONE (10:22)
[2016-12-31] MEDS ORDERED: NOREPINEPHRINE BITARTRATE 16 MG in D5W 500 ML IV SCH (11:00)
[2016-12-31] MEDS: MORPHINE 2 MG/ML 1ML SYRINGE IV PRN (11:10)
--- NOTE | 2016-12-31 11:47 | ECGEPIP ---
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
--- NOTE | 2016-12-31 11:57 | CCN ---
DATE OF SERVICE: 12/31/2016 Critical care time is 1 hour. This excludes all procedures. HISTORY OF PRESENT ILLNESS: The patient had a desaturation event while being turned. He had bradycardia. Although a max cart was called, he lost no pulse and bagged well and was placed back on mechanical ventilation. Heart rate returned into a sinus tachycardia. He is severely ill. Oxygen saturation now 88% on 100% FiO2, PEEP of 10. He continues to have worsening respiratory acidosis despite high-minute ventilation. He is on lung protective strategy for the concern for acute respiratory distress syndrome (ARDS). At this point in time, I have chosen to paralyze the patient in order to decrease oxygen demand. I had a long discussion with the mother, father, and girlfriend regarding his prognosis. They are deciding whether or not they would want cardiopulmonary resuscitation (CPR) if he loses his pulse. At this point in time, we are continuing with full resuscitative efforts. Over 20 in discussion with family. Critical care another 1 hour in addition to the hour that was already performed this am. This excludes all procedures. MAXWELL
[2016-12-31] MEDS ORDERED: REFRIGERATOR IV KEYS XX PRN (12:00)
[2016-12-31] MEDS ORDERED: HEPARIN 1,000 UNITS/ML 10ML VIAL (FOR RADIOLOGY& DIALYSIS ONLY) XX ONE (12:00)
[2016-12-31] MEDS ORDERED: MIDAZOLAM HCL 100 MG in D5W 80 ML IV SCH (12:00)
[2016-12-31] MEDS ORDERED: CISATRACURIUM 200 MG in NS 480 ML IV SCH (12:00)
[2016-12-31] MEDS ORDERED: MIDAZOLAM INJ 2 MG/2 ML VIAL (J2250) IV STA (12:17)
[2016-12-31] MEDS ORDERED: MIDAZOLAM INJ 2 MG/2 ML VIAL (J2250) As Ordered ONE (12:20)
[2016-12-31] MEDS ORDERED: VECURONIUM BROMIDE 10 MG VIAL As Ordered ONE (12:29)
[2016-12-31] MEDS ORDERED: EPINEPHrine INJ 1 MG/ML 1ML AMP As Ordered ONE ×3 (12:32→14:16)
[2016-12-31 12:43] LABS: IONIZED CALCIUM 4.7 MG/DL (4.5-5.3)
[2016-12-31] MEDS ORDERED: LIDOCAINE 2% MDV 20 ML VIAL As Ordered ONE ×2 (12:44→14:06)
[2016-12-31 12:45] LABS: ABG BASE EXCESS -6.8 (-2.0-2.0); ABG HCO3 24.6 MEQ/L (22.0-26.0); ABG PARTIAL PRESSURE O2 57.1 mmHg (75.0-100.0); ABG STANDARD HCO3 18.6 MEQ/L (22.0-26.0); ABG TOTAL CO2 27.5 MEQ/L (22.0-29.0)
[2016-12-31 12:48] LABS: ABG PARTIAL PRESSURE CO2 94.3 mmHg (35.0-45.0); ABG pH (ARTERIAL) 7.035 UNITS (7.350-7.450)
[2016-12-31 12:53] LABS: CALCIUM LEVEL 7.6 MG/DL (8.5-10.1); CREATININE FOR GFR 2.61 MG/DL (0.70-1.30); GLOMERULAR FILTRATION RATE 30.1 (>60); MAGNESIUM LEVEL 2.4 MG/DL (1.8-2.4)
[2016-12-31 13:07] LABS: MEAN CORPUSCULAR HEMOGLOBIN 29.4 pg (27.0-33.0); MEAN CORPUSCULAR HGB CONC 32.3 g/dl (32.0-36.5); MEAN CORPUSCULAR VOLUME 90.9 fl (80.0-96.0); RED CELL DISTRIBUTION WIDTH 15.2 % (11.5-14.5); WHITE BLOOD COUNT 15.3 K/mm3 (4.0-10.0)
--- NOTE | 2016-12-31 13:07 | RO ---
DATE OF PROCEDURE: 12/31/2016 PREPROCEDURE DIAGNOSIS: Hypoxia. High peak pressures on mechanical ventilation. POSTPROCEDURE DIAGNOSIS: Hypoxia. High peak pressures on mechanical ventilation. PROCEDURE: Bronchoscopy. SURGEON: Dl Deshpande DO METHODS SPECIALIST: None ANESTHESIA: Sedated on mechanical ventilation DESCRIPTION OF PROCEDURE: Bedside bronchoscope was inserted into the endotracheal tube. The patient already sedated and paralyzed on mechanical ventilation. The direct vision bronchoscope was used with Cetacaine spray. Trachea was midline. There is no obstruction of the endotracheal tube. Right and left mainstem had bloody secretions. These were suctioned but with difficulty due to the size of the bronchoscope. There was also some limited viewing, I requested a trauma scope from the OR. After adequate suctioning of airway and clearance of main airway, the bronchoscope was removed. I plan on performing bronchoscopy with the trauma scope once the OR bronchoscope arrives. There were no observed complications. MAXWELL
--- NOTE | 2016-12-31 13:12 | CCN ---
DATE OF SERVICE: 12/31/2016 Called to the patient's bedside for severe tachypnea, high peak pressures. I urgently performed bronchoscopy as outlined above. The patient is having hypotension, tachypnea. Now paralyzed to help with oxygen demand. There is no central airway obstruction. There is significant bloody secretions. I believe the patient is likely having alveolar hemorrhage from acute respiratory distress syndrome (ARDS). The patient's family at bedside, stating they do not want any chest compressions, defibrillation if the patient should have further respiratory failure. Critical care time was another 45 minutes at bedside. I have added epinephrine due to his severe hypotension.
[2016-12-31 13:30] LABS: PHOSPHORUS LEVEL 5.2 MG/DL (2.5-4.9)
[2016-12-31 15:12] LABS: HCV RNA NAA QUALITIATIVE Negative (Negative)
--- NOTE | 2016-12-31 15:12 | IPN ---
DATE: 12/30/2016 Critical care time is 1 hour and this excludes all procedures. The patient has suffered a pulmonary emboli from tricuspid valve endocarditis, methicillin sensitive Staphylococcus aureus (MSSA) positive, and on renal replacement therapy due to acute renal failure. Is on a Levophed drip. The patient went into atrial fibrillation rhythm overnight and required amiodarone to convert him to normal sinus rhythm. He continues to be tachycardic in low 100s with a central venous pressure of 13 and hypotensive. The patient's mentation is decreasing as he is becoming more hypoxic and hypotensive. He was intubated yesterday and is on ventilator as lung protective strategy. He remains on Nafcillin, day two of Nafcillin today. PHYSICAL EXAMINATION: VITAL SIGNS: Temperature 98.7, heart rate 108, respiratory rate 38, blood pressure 87/48, pulse ox 97 on ventilator with FiO2 75. GENERAL: The patient is intubated with right IJ catheter in place, sclera are clear, anicteric with moist mucous membranes. The patient is sedated. NECK: Supple. No tracheal deviation or mass. Right internal jugular in place without erythema or exudate. PULMONARY: The patient is on ventilatory control with a PEEP of 10, tidal volume of 460, respiratory rate set at 30. The patient was breathing on his own with a respiratory rate around 40. Loud rhonchi are heard diffusely bilaterally. CARDIAC: Sounds are diminished due to loud breat sounds. However, the few sounds heard are noted to be tachycardic in line with tachycardic peripheral pulse, +2 dorsalis pedis pulses bilaterally. ABDOMEN: Soft, nontender, nondistended. No bowel sounds present. EXTREMITIES: No cyanosis, clubbing or edema. NEURO: On Versed and morphine. Sluggish, opens eyes, weakly follows commands. LABS: ABG: PH 7.19, CO2 65.9, O2 98.9. Sodium 141, potassium 5.0, chloride 105. CO2 26, BUN and creatinine 88 and 3.05, glucose 179, corrected anion gas is 17.5. White count has decreased from 20.9 yesterday to 18.8 today. Hemoglobin and hematocrit are 10.5 and 31.7 respectively. Platelets have increased 39 yesterday to 41 today. PT and INR are 17.8 and 1.43 respectively. PTT 32.1. Hep B serology is pending. HIV and Hep C were found negative. Previous blood cultures were positive for MSSA. Current blood cultures show no growth at 48 hours. Sputum stain and cultures are pending. IMPRESSION: Multiorgan system failure from tricuspid valve endocarditis with systolic heart failure, hypoxic hypercarbia, respiratory failure, septic pulmonary emboli oliguric renal failure, lactic acidosis, thrombocytopenia, metabolic encephalopathy with atrial arrhythmias. PLAN: 1. Respiratory failure, Hypoxic hypercarbia support with mechanical ventilation and acute respiratory distress syndrome, tidal volumes. Monitor for aspiration. Place patient on high minute ventilation due to respiratory failure. Increase tidal volume from 460 to 480 due to possible acute respiratory distress syndrome (ARDS). 2. Septic pulmonary emboli: Continue treating with Nafcillin day two today for MSSA. 3. Tricuspid valve endocarditis: Patient is a risk for further embolism. It is likely that he has embolized to the kidneys as he has MSSA in the urine. 4. Thrombocytopenia: Severe but improving from previous labs. 5. Atrial fibrillation with rapid ventricular response (RVR) secondary to endocarditis systolic heart failure, critical illness, has resolved and converted to normal sinus rhythm. Continue amiodarone for now. Appreciate Dr. Ricks's input. 6. Oliguric renal failure requiring continuous renal replacement therapy. Will continue CRRT until renal function recovers. Appreciate Dr. Jin's input. 7. Protein calorie malnutrition: We have initiated tube feeds at 30 mL on nepro diet. Will increase if patient it tolerating tube feeds. 8. GI prophylaxis with Protonix 40 mg. 9. Deep venous thrombosis prophylaxis with thromboembolism deterrence and Hood's since the patient has thrombocytopenia and therefore heparin is contraindicated. 10. Alcohol abuse. Administer Thiamine and monitor for detox. 11. Metabolic encephalopathy: Will perform sedation vacation every morning to ensure to preserve neurologic function. The patient is severely critically ill with multiple organ system failure. 12. Anemia without indication of transfusion. Continue monitoring. 13. Septic shock: Continue vasopressor therapy with Levophed. Patient is not responding to bolus. 14. Neural prophylaxis: Physical therapy consulted and will seek MPO boots. 15. Anion gap acidosis: Will increase tidal volume from 460 to 480 and continue monitoring. My preceptor for this patient encounter was Dr. Dl Deshpande. The preceptor was physically present in the room during the encounter and was fully available. As needed, all aspects of the patient interview, examination, medical decision making process, and medical care plan development were reviewed and approved by the preceptor. The preceptor is aware and concurs with the plan as stated in the body of this note and will attest to such by his/her cosignature. I, Dl Deshpande, agree with the assessment and plan as outlined above. I conducted an independent history and physicial and was at his bedside to provide the above critical care. MAXWELL
--- NOTE | 2016-12-31 15:13 | DSES ---
DATE OF ADMISSION: 12/26/2016 DATE OF DISCHARGE: 12/31/2016 Mr. Jackson is a 36-year-old male who presented with bacterial endocarditis, methicillin-sensitive staph aureus on the tricuspid valve with septic emboli. He had progressive septic shock, renal failure, respiratory failure, elevated total bilirubin, impaired liver function test (LFTs). He also had systolic heart failure with an ejection fraction (EF) of 35%. 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 He was severely hypoxic, had respiratory acidosis despite high minute ventilation. There was suspicion of mucous plugging; therefore, bronchoscopy was entertained for the second time. The patient had already been initiated on epinephrine at 10 mg. Levophed was already above normal range at 30 and vasopressin at 0.04 units per hour. Despite this, the patient had persistent hypotension and lost pulse. Bronchoscopy was being performed to evacuate sputum from the airways. There were large amounts of hemorrhagic sputum in the airways. No cardiopulmonary resuscitation (CPR) was desired; therefore no chest compressions were performed. The patient remained pulseless and time of was 1420. DISCHARGE DIAGNOSES: 1. Acute hypoxic hypercarbic respiratory failure. 2. Septic emboli to lungs. 3. Methicillin-sensitive Staphylococcus aureus bacterial endocarditis. 4. History of drug abuse with positive toxicology screen on admission. 5. Septic shock. 6. Liver impairment with hyperbilirubinemia. 7. Protein malnourishment with hypoalbuminemia. 8. Metabolic encephalopathy. 9. Acute renal failure requiring cardiac resynchronization therapy. 10. Thrombocytopenia, anemia with the suspicion of disseminated intravascular coagulation. 11. Atrial fibrillation with rapid ventricular response. 12. Systolic heart failure. 13. History of alcohol abuse. No autopsy was requested. [place] [facility] [place] at bedside during occurrence.
--- NOTE | 2016-12-31 15:17 | IPN ---
DATE: 12/31/2016 SUBJECTIVE: The patient was seen and examined at the bedside today morning. The patient is still intubated at this time. He is hypotensive, currently requiring two pressors. He continues to be on intravenous (IV) total parenteral nutrition (TPN). CVVHDF is running at this time. Last 24-hour events were noted. 24-hours intake and output was noted. Patient is still in positive fluid balance. He is still requiring 100% FiO2 on the vent. Most likely he is in acute respiratory distress syndrome (ARDS) at this time. REVIEW OF SYSTEMS: I was unable to do the review of systems as this patient who is intubated at this time is unable to respond. OBJECTIVE: VITAL SIGNS: Temperature this morning was 100/1 degrees Fahrenheit. Blood pressure at this time is 85/47. Pulse is 140, respiratory rate of 40, saturating 89% on the vent with 100% FiO2. INTAKE AND OUTPUT: The patient's total urine output is only 12 mL since overnight. Weight in the bed scale is 98 kg, and the patient is 1.7 liters positive since overnight. PHYSICAL EXAMINATION: GENERAL: The patient is intubated at this time, lying in bed. HEAD/NECK: Pupils have sluggish response to light. The patient does have a gag reflex. He has nasogastric tube (NGT) and orogastric tube (OGT). The patient has a central line in the neck. CARDIOVASCULAR: S1, S2, tachycardia. No murmur, rub, or gallop. RESPIRATORY: The patient has coarse rhonchi and crepitations all over the lungs. ABDOMEN: Soft, positive bowel sounds. Mildly distended. No significant organomegaly. GENITOURINARY: The patient has an indwelling Bashir catheter. No urine in the bag at this time. The patient is having watery diarrhea at this time. MUSCULOSKELETAL: No clubbing or cyanosis. The patient has 1+ edema of all extremities. CENTRAL NERVOUS SYSTEM (PROGRAM DIRECTOR SCOUTING): The patient is minimally responsive to painful stimuli. He does not follow any commands at this time. LABORATORY DATA: CBC showed a WBC 15.3, hemoglobin 8.3, platelets are 39. INR is 1.2 today. ABG done today in the afternoon shows a pH of 7.0, pCO2 of 94, pO2 of 57, bicarbonate is 24, oxygen saturation is 80%. BMP today morning showed sodium 137, potassium is five, chloride 104, bicarbonate 25, BUN is 66, creatinine 2.6, calcium 7.6. Ionized calcium is 4.7. Phosphorus is 5.2. Magnesium is 2.4. Total bilirubin 4.5, AST 76, ALT 98, alkaline phosphatase 180, albumin one. Serology: Hepatitis B surface antibody came back positive. Hepatitis B surface antigen is negative. Hepatitis Be antigen is negative. IMAGING: Chest x-ray done today morning shows diffuse infiltrates bilaterally in the lungs. CURRENT INPATIENT MEDICATIONS: The patient's medications were all reviewed by me. He is sedated with Versed. He continues to be in IV TPN at this time. He is on Levophed vasopressor. Nafcillin has been stopped. He is currently on vancomycin IV. He is also on amiodarone 100 mg by mouth twice a day. ASSESSMENT: A 36-year-old male with polysubstance abuse, this admission to intensive care unit (ICU) with Staphylococcus aureus bacteremia, septic shock, tricuspid valve endocarditis and multiorgan failure. PLAN: 1. Septic shock: The patient is requiring Levophed and vasopressor. Critical care team is planning to add another pressor at this time. The patient became bradycardic today morning. A-line was placed in the left femoral. Continue the IV antibiotics at this time as per primary team. 2. Staphylococcus aureus bacteremia: The patient was initially on nafcillin but because of the elevated liver enzymes and shock liver, antibiotic has been switched to IV vancomycin. 3. Hypoxic and hypercapnic respiratory failure: The patient is most likely going into acute respiratory distress syndrome (ARDS) because of septic shock. I am trying to remove the fluid in this patient; however, because of severe septic shock and patient requiring multiple pressors, it is difficult to keep this patient dry for ARDS. 4. Acute oliguric renal failure: It is secondary to septic shock and possible septic emboli to the kidney as well. The patient is currently on CVVHDF. Continue the CVVHDF at this time. Orders were reviewed and changed today morning. I am going to start pulling the fluid off of this patient because he is in positive fluid balance since this admission and now he is going into ARDS. It will be very challenging to remove the fluid in the patient; however, I am starting to pull fluid at 75 mL an hour for mean arterial pressure (MAP) of greater than 70, 50 mL an hour for MAP of 60-70, and I will keep him even for a MAP of less than 60. 5. Thrombocytopenia: It is secondary to septic shock and shock liver. No active bleeding at this time. Continue to monitor for now. No need of platelet transfusion. 6. Protein calorie malnutrition: The patient is getting TPN at this time. As per primary team, he started tolerating the tube feeds. I would continue the TPN until today evening when it finishes. I have not ordered further TPN for tomorrow. Continue tube feeds as per critical care team. 7. Metabolic encephalopathy: The patient's mental status is deteriorating because of severe sepsis. The patient has been made DO NOT RESUSCITATE (DNR) by the family. 8. Diarrhea: The patient started having watery diarrhea today morning. A rectal tube will be placed. Clostridium (C.) difficile has been sent. 9. Respiratory acidosis: It is secondary to ARDS and multiple cavitary lesions and septic emboli to the lungs. The patient is on the vent. Vent management is as per pulmonary critical care team. The patient has been sedated and paralyzed for further help in the ventilation at this time. GOALS OF CARE: The patient's mother is at the bedside. I discussed the current status of the patient with multiorgan failure and poor prognosis with her. The patient's family members have made him DNR. Overall the patient has a very poor prognosis. However, we shall continue the current aggressive management at this time. I spent more than 45 minutes in the critical care of this patient in the ICU today. MAXWELL
--- NOTE | 2017-01-01 06:59 | CR ---
DATE OF CONSULTATION: 12/29/2016 Asked to consult by Dr. Jimenez for evaluation of right-sided endocarditis with blood cultures positive for methicillin-susceptible Staphylococcus aureus (MSSA). HISTORY OF PRESENT ILLNESS: Danny is a 36-year-old gentleman with a history of polysubstance abuse and intravenous (IV) drug use, heroin, cocaine. The patient was brought in by his girlfriend due to altered mental status. He had spent a week in [place] with his girlfriend trying to detoxify himself on his own. He had some Suboxone available from buying this on the street. He was having a lot of nausea, vomiting, diarrhea for the 3 days prior to admission. Diarrhea was nonbloody, non-mucousy. He had a temperature of 103, a cough productive of whitish phlegm. The patient had been taking Advil for his fever. He had decreased oral intake. By the time he came to the emergency room, he had fever, acute renal failure, rhabdomyolysis with CPK of 5400. Chest x-ray showed multiple cavitary infiltrate. The patient was admitted to the hospitalist service. Blood cultures were positive on 12/26. Two sets were positive for MSSA. Urine culture had MSSA, 12/28 after 48 hours of antibiotic, cultures are negative. He had a transthoracic echocardiogram which showed a 2 cm vegetation. The patient has been undergoing ultrafiltration. PAST MEDICAL HISTORY: Significant for hepatitis C, never treated, polysubstance abuse about 9 years ago, but he had been clean for about 8 years until April 2016 when he relapsed. He has tried to get himself together and detoxify himself on his own recently. No history of methicillin-resistant Staphylococcus aureus (MRSA). PAST SURGICAL HISTORY: Glands removed from pectoralis muscles for cosmetic reasons in [place]. ALLERGIES: No known drug allergies. MEDICATIONS: - Peridex swab twice a day - Versed as needed - morphine as needed - Levophed - Humulin sliding scale subcutaneously every 6 hours - total parenteral nutrition (TPN) - nafcillin 2 grams IV every 4 hours which was changed from vancomycin and Zosyn today - thiamin with a banana bag daily - Xopenex nebulizers as needed - Protonix 40 mg IV every 24 hours - Zofran every four as needed PHYSICAL EXAMINATION: Temperature is 96.9. He has been afebrile throughout this admission, pulse 118, respirations 20, blood pressure 75/68, oxygen saturation 87%. The patient has been intubated and placed on FiO2 of 80% this afternoon. Heart: Normal S1, S2, tachycardiac. Lungs: Diffuse expiratory rhonchi, very labored breathing. Abdomen: Soft, tender mostly in the left upper quadrant in the splenic area. Extremities: +1 edema bilaterally. Dry calloused feet with some scabs. Skin has multiple tattoos. Exam was limited due to significant respiratory discomfort. Oropharynx is dry. The patient seems to be alert and oriented, but lethargic due to exhaustion and hypotension. LABORATORY DATA: White count on admission was 11.8, on 12/27 was down to 3.8, today is 20.9, hemoglobin 11.1, hematocrit 33.5, platelets 39, lowest platelet count was 19. Sodium 140, potassium 4.5, chloride 103, bicarbonate 27, BUN 110, creatinine 3.52, GFR 21, glucose 89, lactic acid 2.3 down from 2.6, calcium 7.9, phosphorus 7, magnesium 2.6, AST 105, ALT 114, AST had increased on admission to 482, ALT was 230 down to 114. Blood cultures two sets are positive for MSSA. Urine culture positive for MSSA and 12/28 blood culture no growth after 24 hours. Echocardiogram showed EF of 30-35% with severe global hypokinesis, large vegetation on the tricuspid valve with moderate tricuspid insufficiency, normal left ventricular size. IMAGING STUDIES: CT abdomen and pelvis on 12/26 showed perinephric fat stranding, anasarca, bilateral malleolar changes with phlegmonous changes with 2.5 cm left gluteal intramuscular fluid collection. Chest CT done on 12/26 shows diffuse bilateral ground-glass density of the lungs, bilateral pulmonary nodules with cavitary lesion. Followup chest x-ray done 12/29 shows diffuse bilateral infiltrates and right IJ catheter. IMPRESSION: This is a 36-year-old gentleman who was admitted to the intensive care unit with Staphylococcus aureus septicemia cavitary pneumonia from septic emboli from tricuspid valve acute endocarditis from methicillin-susceptible Staphylococcus aureus (MSSA). The patient also has developed acute renal failure, most likely related to hypotension and possibly also septic emboli to the kidneys. He has a history of polysubstance abuse. His hepatitis C seems to be inactive at this time. His hepatitis C RNA is not detected and probably his abnormal liver function tests were related to shock liver and not from hepatitis C. Hepatitis B surface antigen is positive will need also to be further worked up. HIV negative. PLAN: Right-sided tricuspid valve endocarditis with bilateral septic emboli, acute renal failure, shock liver in a patient with MSSA, right-sided endocarditis from intravenous (IV) drug abuse. The patient is critical. He was intubated this afternoon. He is receiving ultrafiltration for acute kidney injury. He has evidence of exposure to hepatitis C, but no evidence of acute infection at this time. He also has hepatitis B, with a positive surface antigen which needs to be further worked up. He has evidence of a gluteal abscess that will need to be followed up once he is more stable, possibly incision, could be septic embolism versus his site of injection. Continue with IV nafcillin 2 grams every 4 hours, discontinue IV vancomycin and Zosyn. The patient is critical. Will continue to monitor with you. The case has been discussed with Dr. Witt, Dr. Jimenez, and his family, his mother who is from [place] and his two friends who were available at the bedside.
--- NOTE | 2017-01-01 07:11 | RO ---
DATE OF PROCEDURE: 12/31/2016 PREPROCEDURE DIAGNOSIS: Septic shock. POSTPROCEDURE DIAGNOSIS: Septic shock. PROCEDURE PERFORMED: Left femoral arterial line. SURGEON: Maira Smith MD ARCHITECTURAL PROJECT CAPTAIN: ANESTHETIC: 1% local lidocaine. SEDATION: None. VENTILATION: Patient on the ventilator with rate of 30, tidal volume of 480, PEEP of 10, 100% FiO2. ESTIMATED BLOOD LOSS: 10 mL. DESCRIPTION OF PROCEDURE: Physician was called into the room because the patient had an episode of bradycardia down to 40s and hypotension. Subsequently, emergent arterial line was attempted, first on the patient's left wrist without much success, subsequently attempt was made on the patient's left femoral artery. Site was cleaned with ChloraPrep. The patient was covered in the usual manner. Ultrasound probe with sterile cover was used. 1% local lidocaine was injected. Subsequently, all needle was inserted. A flash of blood was obtained and subsequently the wire was threaded through the needle and the needle was removed and arterial line was placed via Seldinger technique, over the Guidewire and the Guidewire was removed and transducer was connected. Good waveform was generated and subsequently the catheter was secured with stitches and dressings. The patient tolerated the procedure with no complications.
--- NOTE | 2017-01-01 13:57 | IPN ---
DATE OF SERVICE: 12/30/2016 Danny was intubated last night due to respiratory failure. He was hypotensive and was started on Levophed. He looks much better today. His FiO2 requirement decreased from 100% down to 75 today. He is sedated. The patient's temperature is 98.9, pulse 110, respirations 40, blood pressure 88/47, oxygen (O2) saturation 91% on FiO2 of 75%. Heart: Normal S1, S2, tachycardiac. Lungs: Expiratory rhonchi and ventilator sounds heard. Abdomen: Soft, nontender. Extremities: Trace edema. He has multiple scars on his knees and abdomen, which look to me like healed areas of folliculitis. Left ear has an ecchymotic area. According to his girlfriend, he had hit his head while throwing up. LABORATORY DATA: White count is 18.8, hemoglobin 10.5, hematocrit 31.7, platelets 41, 92% neutrophils, 6% lymphocytes. Sodium 141, potassium 4.7, chloride 105, bicarbonate 26, BUN 86, creatinine 2.7, glucose 156, calcium 7.7, phosphorus 5.1, magnesium 2.4. Blood cultures were positive for methicillin-susceptible Staphylococcus aureus (MSSA) 12/26/2016. Urine culture was positive for Staphylococcus aureus on 12/27/2016. Repeat blood culture on 12/28/2016 is no growth after 48 hours. Sputum culture has good quality, many white cells, and many gram positive cocci in pairs, chains, and clusters, most likely also has Staphylococcus aureus. On chest x-ray done on 12/30/2016 shows extensive diffuse bilateral infiltrates. IMPRESSION: 1. Tricuspid valve endocarditis with a very large vegetation of 2 cm with multiple septic emboli and possibly septic emboli to the kidneys, as well. The patient on intravenous (IV) nafcillin with a repeat negative culture. 2. Acute kidney injury, on dialysis. 3. Respiratory failure from combination probably of septic emboli and acute respiratory distress syndrome (ARDS). Ejection fraction on echocardiogram is 30% to 35% and may have a component of fluid overload. 4. Septic shock, on pressors and hemodialysis. The patient continues to be critically ill. Continue with nafcillin at 2 grams IV every 4 hours. Will continue to monitor. Blood cultures will be done tomorrow to make sure that the patient is no longer bacteremic.
--- NOTE | 2017-01-01 23:10 | IPN ---
DATE OF SERVICE: 12/30/2016 Mr. Jackson is seen this morning on his bedside. He remains intubated. He has been hypotensive and on Levophed. He has been on continuous renal replacement therapy (CRRT) due to renal failure and septic shock. The patient remains poorly responsive at this point. He is receiving nutrition via total parenteral nutrition (TPN). PHYSICAL EXAMINATION: Temperature 99.5 degrees Fahrenheit, heart rate 112 per minute and respiratory rate 40 per minute. Blood pressure 89/47 mmHg and oxygen saturation 90% on 75% FiO2. His neck veins are distended. Central line in right internal jugular vein is present. Endotracheal tube and nasogastric tubes are in place. Heart sounds are tachycardiac and irregular. Lungs have bilateral rhonchi with good bilateral air entry. Abdomen is soft and bowel sounds are hypoactive. Extremities have no cyanosis or clubbing. He does have peripheral edema on all four limbs. Today's labs show WBC count 18.8, hemoglobin 10.5 and hematocrit 31.7. Platelets 41,000. Blood gas this morning showed a pH of 7.19, pCO2 66 and pO2 98.9. Bicarbonate is 21. Sodium 141 and potassium 5.0. CO2 of 26, BUN 88 and creatinine 3.05. Glucose 179 and calcium 7.6. AST is down to 75, ALT 96 and alkaline phosphatase 87. Total protein 4.5 and albumin 1.0. PROBLEMS: 1. Anuric acute renal failure. The patient remains on continuous renal replacement therapy (CRRT) which is functioning reasonably well. His BUN and creatinine have improved significantly and electrolytes are within normal range. Metabolic acidosis has also improved. 2. Respiratory failure. This is related to acute respiratory distress syndrome (ARDS). The patient has been intubated. His volume status is not significantly decompensated as his CVP has been about 11. At present he is on the ventilator. 3. Septic shock. The patient has been doing poorly and requires Levophed. He has Staphylococcus aureus bacteremia and tricuspid valve endocarditis. 4. Nutrition. The patient has been on total parenteral nutrition (TPN) and his TPN orders are written. His prognosis remains poor. The patient has multiorgan failure at this point and in critical condition.
--- NOTE | 2017-01-18 12:59 | RO ---
DATE OF PROCEDURE: 12/28/2016 PREPROCEDURE DIAGNOSIS: Acute renal failure. POSTPROCEDURE DIAGNOSIS: Acute renal failure. PROCEDURE: Ultrasound guided right common femoral vein Schon catheter placement. SURGEON: Alan Nieves MD HISTORY FACULTY MEMBER: ANESTHESIA: Local. ESTIMATED BLOOD LOSS: Minimal. INTRAVENOUS FLUID: None. COMPLICATIONS: None. DRAINS: None. SPECIMENS: None. IMPLANTS: Right femoral temporary dialysis catheter. INDICATION: The patient is a 36-year-old male with acute renal failure requiring access for dialysis. The patient will undergo placement of a right common femoral temporary hemodialysis catheter. Risks, benefits, and alternative treatment options were discussed with the patient's family. PROCEDURE: The patient was prepped and draped in a standard surgical fashion. The ultrasound was used to evaluate the right common femoral vein, which was easily compressible, widely patent, and free of thrombus. Ultrasound was then used to guide cannulation of the right common femoral vein with an entry needle. A wire was advanced through the entry needle, which was then used to dilate the right common femoral vein and the temporary hemodialysis catheter was inserted over the wire. Both ports were aspirated and noted to aspirate easily and then flushed with heparinized saline. The catheter was then secured to the right thigh using #3-0 silk suture. Dressings were applied. The patient tolerated the procedure well. All instrument, sponge and needle counts were correct at the end of the case. There were no complications. Dr. Nieves was present for and directed the entire case. The catheter is stable for use for hemodialysis access.
== END 2016-12-31 14:20 | disposition expired | DRG 710 ==
LOC: M ED 18:09 → M ED INP 20:36 → M ICU 22:40
PROVIDERS: ADMIT General Practice; ATTEND Internal Medicine Pulmonary Disease
PROC: 02H633Z Insertion of Infusion Device into Right Atrium, Percutaneous Approach (ICD-10-PCS; principal; 2016-12-26)
PROC: 5A1945Z Respiratory Ventilation, 24-96 Consecutive Hours (ICD-10-PCS; 2016-12-27)
PROC: 02HV33Z Insertion of Infusion Device into Superior Vena Cava, Percutaneous Approach (ICD-10-PCS; 2016-12-28)
PROC: 0BH17EZ Insertion of Endotracheal Airway into Trachea, Via Natural or Artificial Opening (ICD-10-PCS; 2016-12-29)
PROC: 3E0336Z Introduction of Nutritional Substance into Peripheral Vein, Percutaneous Approach (ICD-10-PCS; 2016-12-29)
PROC: 0B978ZZ Drainage of Left Main Bronchus, Via Natural or Artificial Opening Endoscopic (ICD-10-PCS; 2016-12-31)
PROC: 04HY32Z Insertion of Monitoring Device into Lower Artery, Percutaneous Approach (ICD-10-PCS; 2016-12-31)
DX: A41.01 Sepsis due to Methicillin susceptible Staphylococcus aureus (principal); K76.7 Hepatorenal syndrome; I26.01 Septic pulmonary embolism with acute cor pulmonale; D65 Disseminated intravascular coagulation [defibrination syndrome]; J96.01 Acute respiratory failure with hypoxia; G93.41 Metabolic encephalopathy; J18.9 Pneumonia, unspecified organism; J96.92 Respiratory failure, unspecified with hypercapnia; I33.0 Acute and subacute infective endocarditis; E43 Unspecified severe protein-calorie malnutrition; R65.21 Severe sepsis with septic shock; I50.21 Acute systolic (congestive) heart failure; E87.2 Acidosis; M62.82 Rhabdomyolysis; N18.6 End stage renal disease; I48.91 Unspecified atrial fibrillation; E87.5 Hyperkalemia; N28.0 Ischemia and infarction of kidney; B18.2 Chronic viral hepatitis C; R19.7 Diarrhea, unspecified; Z66 Do not resuscitate; D64.9 Anemia, unspecified; F11.23 Opioid dependence with withdrawal; E86.0 Dehydration; F10.10 Alcohol abuse, uncomplicated; Z79.899 Other long term (current) drug therapy